=== PATIENT | male | born 1990 | race Caucasian/White ===

== ENCOUNTER 2022-07-09 10:52 | Inpatient (IN) | payer SELFPAY ==
[2022-07-09] VITALS (9 sets, daily range): BP systolic 109–164; BP diastolic 48–93; PULSE 81–118; RESP 16–21; TEMP 36.6–36.9; O2SAT 98–99; BMI 23.6; BMI 24.3
--- NOTE | 2022-07-09 13:25 | EX.ED.SAOD ---
HPI History of Present Illness Chief Complaint: Substance Abuse Informant: patient and parent Narrative Narrative: Patient presents with his father for alcohol detox. He has been drinking for quite some time. He states he will drink vodka, tequila, or gin. His last drink was around 4 PM yesterday afternoon. He reportedly was at [facility] this morning with an alcohol withdrawal seizure. I was handed discharge paperwork from the hospital advising him to follow-up with 180. Father states that he has been weak and has numbness and tingling in his feet. PFSH PFSH Medical History Alcohol abuse Anxiety and depression Chronic right hip pain (Unknown) Methamphetamine abuse Tobacco use Home Medications NK 07/09/22 [History Last Taken Unknown] Allergy/AdvReac Type Severity Reaction Status Date / Time No Known Allergies Allergy Verified 07/09/22 10:56 Family History (Updated 07/09/22 @ 13:[address] Aisha Padgett MD) Father Anxiety and depression Mother No problems noted. Family History other Surgical History (Updated 07/09/22 @ 13:[address] Aisha Padgett MD) No history of previous surgery Social History (Updated 07/09/22 @ 14:[address] Aisha Padgett MD) household members: other details: Lives with his father. Smoking Status: Current every day smoker tobacco type: cigarettes Smoking packs per day: 1 Smoking cigarettes per day: 20.0 Years smoked: 18 Smoking pack-years: 18.00 alcohol intake: current alcohol intake frequency: 3 or more drinks per day details: 750 ml bottle vodka current daily. substance use type: methamphetamine ROS ROS ED Constitutional Constitutional ED: Denies chills or fever(s) Eyes Eyes: Denies change in vision or discharge from eye(s) ENT ENT ED: Denies discharge from eye(s), rhinorrhea or sore throat Cardiovascular Cardiovascular: Denies chest pain or palpitations Respiratory/Chest Respiratory/Chest: Denies cough or dyspnea Gastrointestinal Gastrointestinal: Denies abdominal pain, diarrhea, nausea or vomiting Genitourinary Genitourinary ED: Denies dysuria Musculoskeletal Musculoskeletal: Denies back pain or extremity pain Integumentary Denies Abrasions or rash Neurologic Neurologic: Reports paresthesias and weakness; Denies headache(s) Psychiatric Psychiatric: Denies anxiety or depression Endocrine Endocrinology: Denies polydipsia or polyuria Allergic/Immunologic Allergic/Immunologic ED: Denies lip swelling or urticaria EXAM Physical Exam Const Vital Signs: 07/09/22 10:53 07/09/22 13:53 07/09/22 13:53 Temperature 97.9 F Temperature Source Temporal Pulse Rate 113 H 98 98 Respiratory Rate 16 18 18 Blood Pressure 123/79 H 114/76 Blood Pressure Mean 93 88 Pulse Ox 99 99 99 Oxygen Delivery Method Room Air Room Air Room Air 07/09/22 13:53 07/09/22 14:38 Temperature 97.9 F Temperature Source Temporal Pulse Rate 98 81 Respiratory Rate 18 16 Blood Pressure 114/76 120/79 Blood Pressure Mean 88 92 Pulse Ox 99 98 Oxygen Delivery Method Room Air Room Air Positive well nourished and well developed General Appearance ED: well developed HEENT Reports dry mucous membranes Mouth ED: Yes dry mucous membranes Mouth: dry mucous membranes Neck no lymphadenopathy Chest Wall inspection of chest normal and palpation of chest normal Resp normal respiratory effort and clear to auscultation bilaterally Cardio Rate: tachycardic GI soft to palpation Neuro oriented x3 Sensorium / Orientation: alert Skin General Skin Exam: jaundice MDM MDM MDM Narrative Medical decision making narrative: Lab work for ED addiction medicine is obtained. Patient given a small dose of Ativan. Lab Data Attestation: I reviewed the patient's lab results. Labs: Laboratory Results - last 24 hr 07/09/22 07/09/22 07/09/22 13:44 13:44 13:44 WBC 4.0 L RBC 3.22 L Hgb 9.8 L Hct 30.8 L MCV 95.7 H MCH 30.4 MCHC 31.8 L RDW Std Deviation 53.1 H RDW Coeff of Mono 15.4 H Plt Count 81 L MPV 11.4 Immature Gran % (Auto) 0.500 Neut % (Auto) 45.0 L Lymph % (Auto) 35.9 [place] % (Auto) 16.3 H Eos % (Auto) 1.3 Baso % (Auto) 1.0 Absolute Neuts (auto) 1.8 L Absolute Lymphs (auto) 1.43 Nucleated RBC % 0 Differential Comment SCANNED Platelet Estimate MOD DEC Sodium 138 Potassium 2.6 L* Chloride 100 Carbon Dioxide 23.0 Anion Gap 15 BUN 5 L Creatinine 0.49 L Estim Creat Clear Calc 212.42 Est GFR (MDRD) Af Amer 251 Est GFR (MDRD) Non-Af 208 BUN/Creatinine Ratio 10.2 Glucose 78 Calcium 8.1 L Phosphorus Magnesium 1.2 L Total Bilirubin 2.20 H AST 103 H ALT 48 Alkaline Phosphatase 87 Total Protein 6.4 Albumin 2.7 L Globulin 3.7 Albumin/Globulin Ratio 0.7 L Ethyl Alcohol < 3.0 07/09/22 13:44 WBC RBC Hgb Hct MCV MCH MCHC RDW Std Deviation RDW Coeff of Mono Plt Count MPV Immature Gran % (Auto) Neut % (Auto) Lymph % (Auto) [place] % (Auto) Eos % (Auto) Baso % (Auto) Absolute Neuts (auto) Absolute Lymphs (auto) Nucleated RBC % Differential Comment Platelet Estimate Sodium Potassium Chloride Carbon Dioxide Anion Gap BUN Creatinine Estim Creat Clear Calc Est GFR (MDRD) Af Amer Est GFR (MDRD) Non-Af BUN/Creatinine Ratio Glucose Calcium Phosphorus 1.9 L Magnesium Total Bilirubin AST ALT Alkaline Phosphatase Total Protein Albumin Globulin Albumin/Globulin Ratio Ethyl Alcohol Treatment and Re-Evaluation Narrative: CBC was white count low at 4.0 with a hemoglobin 9.8. Platelet count is 81,000. Chemistry studies significant for potassium of 2.6. LFTs reveal total bili of 2.2 and an AST of 103. EtOH is less than 3. I spoke with the hospital shortly after seeing the patient. Once potassium level returns low he is ordered 40 mill equivalents of IV potassium. I have requested records from [facility] as the patient reportedly was there this morning. Nurse states she was told on the phone that the patient's potassium was 2.5 at that time and they gave him 50 mill equivalents of potassium by mouth. Patient admitted to the floor for detox. Discharge Plan Triage Chief Complaint: Substance Abuse ED Provider: Cayla Edwards Dx/Rx/DC Orders Clinical Impression: ETOH abuse, Desire for detoxification, Hypokalemia Prescriptions: No Action NK Primary Care Provider: Care Physician,No Primary Referrals: NOT,DEFINED [Non-Staff] - Disposition Disposition: Acute Care [facility]
[2022-07-09] MEDS: 0.9% Normal Saline 1,000 ML 150 ML IV (13:41)
[2022-07-09] MEDS: LORazepam 2 MG/ML Syringe 0.5 MG IV (13:41)
[2022-07-09 13:52] LABS: Absolute Lymphocyte Count 1.43 X10^3/uL (0.83-4.51); Absolute Neutrophil Count 1.8 X10^3/uL (2.0-7.7); Basophil# 0.04 X10^3/uL; Eosinophil# 0.05 X10^3/uL; Eosinophils% 1.3 % (0-5); Hematocrit 30.8 % (40-54); Hemoglobin 9.8 g/dL (13.0-16.5); Lymphocyte # 1.43 X10^3/ul (0.83-4.51); Lymphocyte % 35.9 % (19-41); Mean Corp Hgb Conc 31.8 g/dL (32-36); Mean Corpuscular Hgb 30.4 pg (27.0-32.0); Mean Corpuscular Volume 95.7 fL (80-94); Mean Platelet Vol. 11.4 fl (6.2-12.0); Monocyte# 0.65 X10^3/uL; Monocyte% 16.3 % (0-10); NRBC Flagged by Analyzer 0 % (0-5); Neutrophil # 1.79 X10^3/uL (2.7-7.7); POSITIVE COUNT YES; Platelet Count 81 K/mm3 (150-450); RBC Distribution Width CV 15.4 % (11.6-14.6); RBC Distribution Width SD 53.1 fl (35.1-43.9); Red Blood Count 3.22 M/mm3 (4.6-6.2)
[2022-07-09 14:02] LABS: Differential Indicated SCAN CRITERIA MET
[2022-07-09 14:08] LABS: Phosphorus 1.9 mg/dL (2.5-4.9)
[2022-07-09 14:13] LABS: ALB/GLOB Ratio 0.7 RATIO (0.9-2.4); AST(SGOT) 103 U/L (15-37); Alanine Aminotransfer ALT/SGPT 48 U/L (16-61); Albumin, Serum 2.7 g/dL (3.2-5.0); Alkaline Phosphatase 87 U/L (45-117); Anion Gap 15 (5-15); BUN 5 mg/dL (7-18); BUN/Creat Ratio 10.2 RATIO (10-20); Calcium,Total 8.1 mg/dL (8.5-10.1); Chloride 100 mmol/L (98-107); Creatinine, Serum 0.49 mg/dL (0.70-1.30); EST Glomerular Filtration Rate 208 mL/min (>60); Est Glom Filt Rate - Afr Amer 251 mL/min (>60); Estimated Creatinine Clearance 212.42 ml/min; Globulin 3.7 g/dL (2.2-4.2); Glucose 78 mg/dL (74-106); Magnesium 1.2 mg/dL (1.6-2.6); Potassium 2.6 mmol/L (3.5-5.1); Protein, Total 6.4 g/dL (6.4-8.2); Sodium Level 138 mmol/L (136-145)
[2022-07-09 14:14] LABS: Alcohol, Blood (Medical)-Serum < 3.0 mg/dL
--- NOTE | 2022-07-09 14:19 | PCM.HP.STD ---
HPI - General General Date of Admission: 07/09/22 Date of Service: 07/09/22 Chief Complaint: EtOH withdrawal, recent EtOH withdrawal seizure. HPI Narrative The patient is a 32 y/o M w/ PMHx: Chronic R Hip pain s/p remote injury, EtOH Abuse, Tobacco use, Anxiety and Depression, Methamphetamine abuse who presents to the [facility] on 07/09/22 w/ noted acute EtOH withdrawal, onset starting on the day prior to presentation, worsening, following last EtOH intake 07/08/22 4 pm with onset of nausea, tremors, agitation, tactile disturbances initially, eventually presenting to [facility] where is was kept in the ED overnight and treated for an apparent EtOH withdrawal seizure confirmed per patient father presentation currently and eventually discharged to home with recommendation for follow-up with 180. Discharge paperwork from their facility reviewed and it does list EtOH withdrawal seizure. No medication was given to the patient at his discharge. The father called 180 and was immediately referred to present with his son to the [facility] ED for evaluation and treatment. Patient interested in attaining sober status noting that he started heavy EtOH drinking ~ 4 years prior when his grandfather passed and then he could not stop. He notes normally he drinks recently at least 750 ml bottle vodka daily. Work-up in the ED included T97.9, heart rate 113, BP 123/79, respiratory rate 16, 99% on room air, pending alcohol level, UDS, urinalysis, CBC and CMP upon evaluation of patient. In the ED patient ministered Ativan 0.5 mg IV x1. [facility] Medical History Alcohol abuse Anxiety and depression Chronic right hip pain (Unknown) Methamphetamine abuse Tobacco use Allergy/AdvReac Type Severity Reaction Status Date / Time No Known Allergies Allergy Verified 07/09/22 10:56 Family History (Updated 07/09/22 @ 13:[address] Aisha Padgett MD) Father Anxiety and depression Mother No problems noted. Family History other other (Patient does not know his mother well. His father has been from her x 18 years and there is not marked interaction.) Surgical History (Updated 07/09/22 @ 13:[address] Aisha Padgett MD) No history of previous surgery Social History (Updated 07/09/22 @ 14:[address] Aisha Padgett MD) household members: other details: Lives with his father. Smoking Status: Current every day smoker tobacco type: cigarettes Smoking packs per day: 1 Smoking cigarettes per day: 20.0 Years smoked: 18 Smoking pack-years: 18.00 alcohol intake: current alcohol intake frequency: 3 or more drinks per day details: 750 ml bottle vodka current daily. substance use type: methamphetamine ROS ROS Narrative Admission Review of Systems: CONSTITUTIONAL: No weight loss, fever, chills, + weakness or fatigue. HEENT: Eyes: No visual loss, blurred vision, double vision or yellow sclerae. Ears, Nose, Throat: No hearing loss, sneezing, congestion, runny nose or sore throat. SKIN: No rash or itching, lesions, wounds. CARDIOVASCULAR: No chest pain, chest pressure or chest discomfort, palpitations, edema, orthopnea, syncopal events. RESPIRATORY: No shortness of breath, cough or sputum, wheezing, hemoptysis. GASTROINTESTINAL: + anorexia, nausea, No vomiting or diarrhea, abdominal pain, melena, BRBPR. GENITOURINARY: No dysuria, frequency, urgency or retention. NEUROLOGICAL: + Seizure, tactile disturbances, tremors, No headache, dizziness, syncope, paralysis, ataxia, numbness or tingling in the extremities, focal weakness, change in bowel or bladder control. MUSCULOSKELETAL: + muscle, back pain, joint pain or stiffness. HEMATOLOGIC: No anemia, bleeding or bruising. LYMPHATICS: No enlarged nodes. No history of splenectomy. PSYCHIATRIC: + history of depression or anxiety. ENDOCRINOLOGIC: No reports of sweating, cold or heat intolerance. No polyuria or polydipsia. ALLERGIES: No history of asthma, hives, eczema or rhinitis. Vital Signs Vital Signs Vital Signs: 07/09/22 10:53 Temperature 97.9 F Temperature Source Temporal Pulse Rate 113 H Respiratory Rate 16 Blood Pressure 123/79 H Blood Pressure Mean 93 Pulse Ox 99 Oxygen Delivery Method Room Air Weight Weight: 160 lb Body Mass Index (BMI) 23.6 Physical Exam Narrative Physical Examination: General: Awake, alert, oriented x 3 and cooperative, lying in the bed, fatigued, restless, mild tremor still present, recently ministered IV Ativan per ED. Skin: Normal color, normal turgor, no icterus, no cyanosis except occasional staged ecchymoses. HEENT: AT/NC, EOMI, PERRLA, dry MM, no carotid bruits or JVD noted. Lungs: Mildly diminished, greater bases, appropriate effort, no rales, ronchi or wheezing. Heart: Mildly tachycardic with regular rhythm; no gallop, rub audible. Abdomen: Soft, mild HTN, NTTP, ND, mildly hyperactive BS, no HSM. Extremities: No cyanosis, clubbing, or edema. Neurological: Patient awake, alert, oriented as noted, fatigued, restless, cognitive function suspect mildly decreased from baseline intact; pupils equally reactive to light and accommodation, cranial nerves grossly normal, moving all 4 extremities, no focal deficits, strength moderately to severely globally decrease secondary to recent alcohol withdrawal seizure but improving, occurred earlier in the day, mildly tremulous, still some tactile disturbances. Psychiatric: Affect appears fatigued, evident mild withdrawal ongoing no acute evidence of depressive or anxiety feelings but does admit underlying history. Results Lab / Micro Data Result Diagrams: 07/09/22 13:44 07/09/22 13:44 Assessment & Plan Assessment/Plan (1) Acute hyperactive alcohol withdrawal delirium: (2) Alcohol withdrawal seizure: PLAN: Plan The patient is a 32 y/o M w/ PMHx: Chronic R Hip pain s/p remote injury, EtOH Abuse, Tobacco use, Anxiety and Depression, Methamphetamine abuse who presents to the [facility] on 07/09/22 w/ noted acute EtOH withdrawal, onset starting on the day prior to presentation, worsening, following last EtOH intake 07/08/22 4 pm with onset of nausea, tremors, agitation, tactile disturbances initially, eventually presenting to [facility] where is was kept in the ED overnight and treated for an apparent EtOH withdrawal seizure confirmed per patient father presentation currently and eventually discharged to home with recommendation for follow-up with 180. #1. Acute EtOH Withdrawal w/ associated recent Acute EtOH Withdrawal Seizure prior to ED arrival: Will admit to [facility], routine labs obtained in the ED upon presentation and pending upon evaluation. Given interest in sobriety, will initiate and continue on protocol with taper course of Phenobarbital, scheduled gabapentin for seizure prophylaxis given recent EtOH seizure associated, as needed Catapres, Bentyl, Vistaril, IV fluids, IV antiemetics, Tylenol as needed for pain. Will consult Case management for assistance for transition to next level of rehabilitation care. Mag, phos pending. Maintain on CIWA protocol concurrently. #2. Polysubstance abuse with reported methamphetamine use: Unclear if other additional use, not extremely forthcoming, UDS is pending but reported methamphetamine from prior. #3. Anxiety and depression: Likely greatly contributing to his alcohol abuse, reports onset of heavy drinking for years prior following the passing of his grandfather, will have 180 and case management consulted and would benefit greatly from therapy and potentially medications once he is transitioned out of the acute withdrawal treatment phase #4. Tobacco Abuse: Encouraged cessation, inpatient consultation per RT, NR if desired. #5. Chronic right hip pain, suspected osteoarthritic change: Patient with chronic right hip pain following injury in 6 grade reportedly falling off horse, encourage frequent positional changes, fall precautions #6. DVT prophylaxis: Low risk, encourage ambulation once appropriate. Admission Evaluation Time spent evaluating chart, patient history, patient evaluation, care planning and discussion with specialists: 75 minutes. Charges/Coding Visit Charges Inpatient E&M: 61071 Init Hosp L3
[2022-07-09 14:24] LABS: Differential Comment SCANNED; Platelet Estimate MOD DEC (ADEQ)
[2022-07-09 15:13] LABS: Mucous, Urine 0 SEEN /hpf (<or=2+); Red Blood Cells-Urine 0 SEEN /hpf (0-5)
[2022-07-09 15:17] LABS: Glucose, Dipstick Normal (Normal); Leukocyte Esterase-Dipstick 25 /ul (Negative); Nitrite-Dipstick Negative (Negative); Occult Blood-Urine Negative /ul (Negative); Protein-Dipstick 15 mg/dl (Negative); Urine Urobilinogen 8 mg/dl (Normal); Urine pH 6.5 (5.0 - 8.0)
[2022-07-09 15:20] LABS: Color, Urine Yellow (Yellow); Urine Bilirubin Dipstick 1 mg/dL (Negative); Urine Clarity Sl Cldy (Clear)
[2022-07-09 15:22] LABS: Ketone-Dipstick 150 mg/dl (Negative)
[2022-07-09] MEDS: Potassium Chloride 10mEq/100mL 10 MEQ/100 ML IV.SOLN. 100 MEQ IV BOLUS ×4 (15:25→19:47)
[2022-07-09 15:26] LABS: Bacteria 1+ /hpf (None Seen); Squamous Epithelial Cells - UA 0-5 SEEN /hpf (0-5); White Blood Cells 0-5 SEEN /hpf (0-5)
[2022-07-09 15:42] LABS: Amphetamine Urine VISTA POSITIVE (<1000 ng/mL); Barbiturate Urine VISTA NEGATIVE (< 200 ng/mL); Benzodiazepine Urine VISTA NEGATIVE (< 200 ng/mL); Cocaine Urine VISTA NEGATIVE (< 300 ng/mL); Ecstacy Urine VISTA NEGATIVE (< 500 ng/mL); Methadone Urine VISTA NEGATIVE (< 300 ng/mL); PCP Urine VISTA NEGATIVE (< 25 ng/mL); THC Urine VISTA NEGATIVE (< 50 ng/mL); Vista UDS pH Range 6
[2022-07-09] MEDS: Phenobarbital Sodium 130 MG/ML Vial 100 MG IV (16:55)
[2022-07-09] MEDS: Magnesium Sulfate 4gm/100mL 4 GM/100 ML IV.SOLN. IV (16:59)
[2022-07-09] MEDS: Lactated Ringers 1,000 ML 125 ML IV (17:02)
[2022-07-09] MEDS: Phenobarbital 32.4 MG Tablet PO (21:12)
[2022-07-09] MEDS: Gabapentin 300 MG Capsule PO (21:12)
[2022-07-09] MEDS: Pantoprazole Sodium 40 MG Tablet PO (21:13)
[2022-07-10] VITALS (10 sets, daily range): BP systolic 120–142; BP diastolic 62–98; PULSE 73–114; RESP 16–18; TEMP 36.7–37; O2SAT 94–100
[2022-07-10] MEDS: Phenobarbital 32.4 MG Tablet PO ×6 (01:44→21:01)
[2022-07-10 04:53] LABS: Absolute Neutrophil Count 1.3 X10^3/uL (2.0-7.7); Basophil# 0.04 X10^3/uL; Basophil% 1.1 % (0-1); Eosinophil# 0.08 X10^3/uL; Eosinophils% 2.2 % (0-5); Hemoglobin 9.1 g/dL (13.0-16.5); Lymphocyte % 45.9 % (19-41); Mean Corp Hgb Conc 32.5 g/dL (32-36); Mean Corpuscular Hgb 31.1 pg (27.0-32.0); Mean Corpuscular Volume 95.6 fL (80-94); Mean Platelet Vol. 10.5 fl (6.2-12.0); Monocyte# 0.54 X10^3/uL; Monocyte% 14.6 % (0-10); NRBC Flagged by Analyzer 0 % (0-5); Neutrophil # 1.33 X10^3/uL (2.7-7.7); Neutrophil % 35.9 % (47-70); POSITIVE COUNT YES; Platelet Count 89 K/mm3 (150-450); RBC Distribution Width CV 15.6 % (11.6-14.6); Red Blood Count 2.93 M/mm3 (4.6-6.2); White Blood Count 3.7 K/mm3 (4.4-11.0)
[2022-07-10 05:14] LABS: Vitamin B12 590 pg/mL (211-911)
[2022-07-10 05:42] LABS: ALB/GLOB Ratio 0.7 RATIO (0.9-2.4); AST(SGOT) 82 U/L (15-37); Alanine Aminotransfer ALT/SGPT 43 U/L (16-61); Albumin, Serum 2.5 g/dL (3.2-5.0); Alkaline Phosphatase 76 U/L (45-117); Anion Gap 15 (5-15); BUN 2 mg/dL (7-18); Calcium,Total 7.7 mg/dL (8.5-10.1); Chloride 100 mmol/L (98-107); Creatinine, Serum 0.34 mg/dL (0.70-1.30); EST Glomerular Filtration Rate 320 mL/min (>60); Est Glom Filt Rate - Afr Amer 388 mL/min (>60); Estimated Creatinine Clearance 306.14 ml/min; Ferritin 387 ng/mL (26-388); Globulin 3.6 g/dL (2.2-4.2); Glucose 102 mg/dL (74-106); Iron 51 ug/dL (65-175); Iron Binding Capacity,Total 240 ug/dL (250-450); Magnesium 1.5 mg/dL (1.6-2.6); PERCENT IRON SATURATION 21.2 % (15.0-55.0); Phosphorus 2.1 mg/dL (2.5-4.9); Potassium 2.5 mmol/L (3.5-5.1); Protein, Total 6.1 g/dL (6.4-8.2); Sodium Level 138 mmol/L (136-145)
[2022-07-10] MEDS: Gabapentin 300 MG Capsule PO ×3 (05:52→21:01)
[2022-07-10] MEDS: Magnesium Sulfate 4gm/100mL 4 GM/100 ML IV.SOLN. IV (06:42)
--- NOTE | 2022-07-10 08:05 | PN.HOSP_ITS ---
Subjective Subjective Patient is a 32-year-old gentleman with history of polysubstance dependence including methamphetamine as well as alcohol admitted with acute alcohol withdrawal Objective Data Objective Data Vital Signs: Vital Signs Temp Pulse Resp BP Pulse Ox O2 Del Method 98.2 F 82 16 142/98 H 99 Room Air 07/10/22 03:20 07/10/22 04:11 07/10/22 03:20 07/10/22 03:20 07/10/22 03:20 07/10/22 03:20 Oxygen Delivery Method Room Air Weight: 74.9 kg Body Mass Index (BMI) 24.3 Intake & Output: Intake and Output for Last 24 Hours 07/08/22 07/09/22 07/10/22 23:59 23:59 23:59 Intake Total 1500 / 1500 1957 / 1957 Output Total 625 / 625 700 / 700 Balance 875 / 875 1257 / 1257 Lab / Micro Data Result Diagrams: 07/10/22 04:20 07/10/22 04:20 Labs: Laboratory Results - last 24 hr 07/09/22 13:44: WBC 4.0 L, RBC 3.22 L, Hgb 9.8 L, Hct 30.8 L, MCV 95.7 H, MCH 30.4, MCHC 31.8 L, RDW Std Deviation 53.1 H, RDW Coeff of Mono 15.4 H, Plt Count 81 L, MPV 11.4, Immature Gran % (Auto) 0.500, Neut % (Auto) 45.0 L, Lymph % (Auto) 35.9, [place] % (Auto) 16.3 H, Eos % (Auto) 1.3, Baso % (Auto) 1.0, Absolute Neuts (auto) 1.8 L, Absolute Lymphs (auto) 1.43, Nucleated RBC % 0, Differential Comment SCANNED, Platelet Estimate MOD DEC 07/09/22 13:44: Sodium 138, Potassium 2.6 L*, Chloride 100, Carbon Dioxide 23.0, Anion Gap 15, BUN 5 L, Creatinine 0.49 L, Estim Creat Clear Calc 212.42, Est GFR (MDRD) Af Amer 251, Est GFR (MDRD) Non-Af 208, BUN/Creatinine Ratio 10.2, Glucose 78, Calcium 8.1 L, Magnesium 1.2 L, Total Bilirubin 2.20 H, AST 103 H, ALT 48, Alkaline Phosphatase 87, Total Protein 6.4, Albumin 2.7 L, Globulin 3.7, Albumin/Globulin Ratio 0.7 L 07/09/22 13:44: Ethyl Alcohol < 3.0 07/09/22 13:44: Phosphorus 1.9 L 07/09/22 15:00: Urine Opiates Screen NEGATIVE, Urine Methadone Screen NEGATIVE, Ur Barbiturates Screen NEGATIVE, Ur Phencyclidine Scrn NEGATIVE, Ur Amphetamines Screen POSITIVE H, MDMA (Ecstasy) Screen NEGATIVE, U Benzodiazepines Scrn NEGATIVE, Urine Cocaine Screen NEGATIVE, U Cannabinoids Screen NEGATIVE, Ur Drug Screen Comment 07/09/22 15:00: Urine Color Yellow, Urine Clarity Sl Cldy, Urine pH 6.5, Ur Specific [place] 1.010, Urine Protein 15 H, Urine Glucose (UA) Normal, Urine Ketones 150 A*, Urine Occult Blood Negative, Urine Nitrite Negative, Urine Bilirubin 1 H, Urine Urobilinogen 8 H, Ur Leukocyte Esterase 25 H, Urine RBC 0 SEEN, Urine WBC 0-5 SEEN, Ur Squamous Epith Cells 0-5 SEEN, Urine Bacteria 1+, Urine Mucus 0 SEEN 07/10/22 04:20: WBC 3.7 L, RBC 2.93 L, Hgb 9.1 L, Hct 28.0 L, MCV 95.6 H, MCH 31.1, MCHC 32.5, RDW Std Deviation 54.0 H, RDW Coeff of Mono 15.6 H, Plt Count 89 L, MPV 10.5, Immature Gran % (Auto) 0.300, Neut % (Auto) 35.9 L, Lymph % (Auto) 45.9 H, [place] % (Auto) 14.6 H, Eos % (Auto) 2.2, Baso % (Auto) 1.1 H, Absolute Neuts (auto) 1.3 L, Absolute Lymphs (auto) 1.70, Nucleated RBC % 0 07/10/22 04:20: Sodium 138, Potassium 2.5 L*, Chloride 100, Carbon Dioxide 23.0, Anion Gap 15, BUN 2 L, Creatinine 0.34 L, Estim Creat Clear Calc 306.14, Est GFR (MDRD) Af Amer 388, Est GFR (MDRD) Non-Af 320, BUN/Creatinine Ratio 6.0 L, Glucose 102, Calcium 7.7 L, Phosphorus 2.1 L, Magnesium 1.5 L, Iron 51 L, TIBC 240 L, Iron Saturation 21.2, Ferritin 387, Total Bilirubin 1.40 H, AST 82 H, ALT 43, Alkaline Phosphatase 76, Total Protein 6.1 L, Albumin 2.5 L, Globulin 3.6, Albumin/Globulin Ratio 0.7 L, Folate 7.60 07/10/22 04:20: Vitamin B12 590 Physical Exam Narrative GENERAL: Was agitated agitated HEENT: Atraumatic; normocephalic EYES; Anicteric, Normal Conjunctiva NECK; supple, normal thyroid, RESPIRATORY: Diminished to auscultation CARDIOVASCULAR: Regular S1 S2, GI: soft, normoactive bowel sounds, : No Renal angle tenderness; EXTREMITIES: No edema, no clubbing, MUSCULOSKELETAL: no muscle wasting NEURO: Awake; no lateralizing signs. SKIN: No Rash PSYCH; agitated Assessment & Plan Assessment/Plan (1) Acute hyperactive alcohol withdrawal delirium: (2) Alcohol withdrawal seizure: PLAN: Plan Patient is a 32-year-old gentleman with history of polysubstance dependence including methamphetamine as well as alcohol admitted with acute alcohol withdrawal 1. Acute alcohol withdrawal -patient has been admitted to regular nursing floor being managed with phenobarb taper in addition to adjuvant medications for symptom management 2. Severe hypokalemia ? Possibly related to his alcohol use corrected per protocol repeat potassium levels ordered 3. Polysubstance dependence ? Including alcohol as well as methamphetamine counseled on cessation 4. Tobacco dependence - Counseled on cessation, offered nicotine patch for tobacco cravings 5. Anemia - Secondary to chronic disorder monitoring H&H and transfuse if patient becomes symptomatic or hemoglobin falls below 7 6DVT prophylaxis ? Low risk did encourage any ambulation Time spent in the patient's overall evaluation,decision-making process, review of diagnostic data, adjustment of management, discussion with other providers, nursing nursing and ancillary staff involved in patient's care documentation, 56 minutes Charges/Coding Visit Charges Inpatient E&M: 86626 Subs Hosp L3 Reason for Visit Reason for Visit: Diagnoses Alcohol use, unspecified with withdrawal delirium (07/09/22) Alcohol use, unspecified with withdrawal, unspecified (07/09/22) Unspecified convulsions (07/09/22)
[2022-07-10] MEDS: Pantoprazole Sodium 40 MG Tablet PO ×2 (08:52→21:03)
[2022-07-10] MEDS: Folic Acid 1 MG Tablet PO (08:52)
[2022-07-10] MEDS: Thiamine Hydrochloride 100 MG Tablet PO (08:52)
[2022-07-10] MEDS: LORazepam 1 MG Tablet 2 MG PO ×4 (08:55→21:03)
[2022-07-10] MEDS: Potassium Chloride 10mEq/100mL 10 MEQ/100 ML IV.SOLN. 100 MEQ IV BOLUS ×4 (09:22→12:52)
--- NOTE | 2022-07-10 09:32 | NURSING ---
pt agitated upset that he is here. confused on place and time and upset that iv fluids are running. ativan given. pt grabbed nursing arm and would not let go, but did finally
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
[2022-07-10 13:58] LABS: Anion Gap 13 (5-15); BUN 1 mg/dL (7-18); BUN/Creat Ratio 2.6 RATIO (10-20); Chloride 100 mmol/L (98-107); Creatinine, Serum 0.39 mg/dL (0.70-1.30); EST Glomerular Filtration Rate 270 mL/min (>60); Est Glom Filt Rate - Afr Amer 327 mL/min (>60); Estimated Creatinine Clearance 266.89 ml/min; Glucose 106 mg/dL (74-106); Phosphorus 3.2 mg/dL (2.5-4.9); Potassium 2.8 mmol/L (3.5-5.1); Sodium Level 139 mmol/L (136-145)
[2022-07-10] MEDS: Potassium Chloride Oral Tablet 20 MEQ PO (16:31)
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
[2022-07-10] MEDS: 0.9% Saline Lock 10 ML Syringe IV (21:03)
[2022-07-11 01:45] VITALS: BP 139/87; PULSE 74; RESP 18; TEMP 36.8; O2SAT 99
[2022-07-11] MEDS: LORazepam 1 MG Tablet 2 MG PO ×4 (01:49→14:54)
[2022-07-11] MEDS: Phenobarbital 32.4 MG Tablet PO ×6 (01:49→21:22)
[2022-07-11 06:31] VITALS: BP 121/89; PULSE 74; RESP 18; TEMP 36.8; O2SAT 100
[2022-07-11] MEDS: Gabapentin 300 MG Capsule PO ×3 (06:37→21:22)
[2022-07-11 06:38] LABS: Anion Gap 9 (5-15); BUN 4 mg/dL (7-18); BUN/Creat Ratio 11.4 RATIO (10-20); Calcium,Total 8.4 mg/dL (8.5-10.1); Chloride 104 mmol/L (98-107); Creatinine, Serum 0.35 mg/dL (0.70-1.30); EST Glomerular Filtration Rate 305 mL/min (>60); Est Glom Filt Rate - Afr Amer 368 mL/min (>60); Estimated Creatinine Clearance 297.39 ml/min; Glucose 109 mg/dL (74-106); Phosphorus 3.4 mg/dL (2.5-4.9); Potassium 2.9 mmol/L (3.5-5.1); Sodium Level 141 mmol/L (136-145)
--- NOTE | 2022-07-11 07:34 | PN.HOSP_ITS ---
Reason for Visit Reason for Visit: Diagnoses Alcohol use, unspecified with withdrawal delirium (07/09/22) Alcohol use, unspecified with withdrawal, unspecified (07/09/22) Unspecified convulsions (07/09/22) Subjective Subjective Seen remains significantly tremulous. Patient sweats a lot. Objective Data Objective Data Vital Signs: Vital Signs Temp Pulse Resp BP Pulse Ox O2 Del Method 98.2 F 74 18 121/89 H 100 Room Air 07/11/22 06:31 07/11/22 06:31 07/11/22 06:31 07/11/22 06:31 07/11/22 06:31 07/11/22 06:31 Oxygen Delivery Method Room Air Weight: 74.9 kg Body Mass Index (BMI) 24.3 Intake & Output: Intake and Output for Last 24 Hours 07/09/22 07/10/22 07/11/22 23:59 23:59 23:59 Intake Total 1500 / 1500 4120.3333 / 4120.3333 Output Total 625 / 625 3200 / 3200 Balance 875 / 890 477.5298 / 920.3333 Lab / Micro Data Result Diagrams: 07/10/22 04:20 07/11/22 05:01 Labs: Laboratory Results - last 24 hr 07/10/22 11:49: Sodium 139, Potassium 2.8 L, Chloride 100, Carbon Dioxide 26.0, Anion Gap 13, BUN 1 L, Creatinine 0.39 L, Estim Creat Clear Calc 266.89, Est GFR (MDRD) Af Amer 327, Est GFR (MDRD) Non-Af 270, BUN/Creatinine Ratio 2.6 L, Gluco se 106, Calcium 8.0 L, Phosphorus 3.2 07/11/22 05:01: Sodium 141, Potassium 2.9 L, Chloride 104, Carbon Dioxide 28.0, Anion Gap 9, BUN 4 L, Creatinine 0.35 L, Estim Creat Clear Calc 297.39, Est GFR (MDRD) Af Amer 368, Est GFR (MDRD) Non-Af 305, BUN/Creatinine Ratio 11.4, G lucose 109 H, Calcium 8.4 L, Phosphorus 3.4 Physical Exam Narrative GENERAL: Was agitated agitated HEENT: Atraumatic; normocephalic EYES; Anicteric, Normal Conjunctiva NECK; supple, normal thyroid, RESPIRATORY: Diminished to auscultation CARDIOVASCULAR: Regular S1 S2, GI: soft, normoactive bowel sounds, : No Renal angle tenderness; EXTREMITIES: No edema, no clubbing, MUSCULOSKELETAL: no muscle wasting NEURO: Awake; no lateralizing signs. SKIN: No Rash PSYCH; agitated Assessment & Plan Assessment/Plan (1) Acute hyperactive alcohol withdrawal delirium: (2) Alcohol withdrawal seizure: PLAN: Plan Patient is a 32-year-old gentleman with history of polysubstance dependence including methamphetamine as well as alcohol admitted with acute alcohol withdrawal 1. Acute alcohol withdrawal -patient has been admitted to regular nursing floor being managed with phenobarb taper in addition to adjuvant medications for symptom management ? 07/11/2022 patient remains significantly tremulous plan is to continue with current treatment regimen 2. Severe hypokalemia ? Possibly related to his alcohol use corrected per protocol repeat potassium levels ordered 3. Polysubstance dependence ? Including alcohol as well as methamphetamine counseled on cessation 4. Tobacco dependence - Counseled on cessation, offered nicotine patch for tobacco cravings 5. Anemia - Secondary to chronic disorder monitoring H&H and transfuse if patient becomes symptomatic or hemoglobin falls below 7 6. DVT prophylaxis ? Low risk did encourage any ambulation Time spent in the patient's overall evaluation,decision-making process, review of diagnostic data, adjustment of management, discussion with other providers, nursing nursing and ancillary staff involved in patient's care documentation, 36 minutes Charges/Coding Visit Charges Inpatient E&M: 38712 Subs Hosp L2
[2022-07-11] MEDS: Folic Acid 1 MG Tablet PO (08:54)
[2022-07-11] MEDS: Pantoprazole Sodium 40 MG Tablet PO ×2 (08:54→21:24)
[2022-07-11] MEDS: Thiamine Hydrochloride 100 MG Tablet PO (08:54)
[2022-07-11] MEDS: Potassium Chloride Oral Tablet 20 MEQ PO ×2 (08:54→17:55)
[2022-07-11] MEDS: Potassium Chloride Oral Tablet 20 MEQ 40 MEQ PO (08:54)
[2022-07-11 11:00] VITALS: BP 127/76; PULSE 71; RESP 16; TEMP 37.3; O2SAT 98
--- NOTE | 2022-07-11 12:10 | CASEMGMT ---
DANNY Note DANNY was advised by [facility] SW that patient has no insurance. DANNY met with patient nick and provided him with Medicaid application. DANNY encouraged patient to complete the medicaid application when he is feeling better. No other issues or needs voiced. DANNY remains available if needs arise. Reta TOMLINSON
[2022-07-11 14:50] VITALS: BP 128/83; PULSE 104; RESP 16; TEMP 36.9; O2SAT 96
[2022-07-11] MEDS: LORazepam 2 MG/ML Syringe IV ×3 (15:23→19:32)
[2022-07-11] MEDS: 0.9% Saline Lock 10 ML Syringe IV ×3 (15:24→19:32)
--- NOTE | 2022-07-11 15:25 | ADDICTION ---
This insurance writer met with client to develop d/c plan. Client has poor insight to his ETOH use or mental health. Indicates he is only here to make his Dad happy Client has difficulty maintaining focus and staying on task. He does not believe his ETOH is an issue at this time. He declines referrals to AoD treatment. He does agree to meet with a clinician one time to see what it is about. Client denies h/o substance use or treatment.
[2022-07-11 20:33] VITALS: BP 114/88; PULSE 103; RESP 18; TEMP 36.7; O2SAT 99
[2022-07-11] MEDS: hydrOXYzine PAM 25 MG Capsule 50 MG PO (20:54)
--- NOTE | 2022-07-11 21:07 | NURSING ---
pt continues to refuse tele
[2022-07-11] MEDS: traZODone 100 MG Tablet PO (21:22)
[2022-07-12] VITALS (7 sets, daily range): BP systolic 103–150; BP diastolic 65–98; PULSE 71–100; RESP 16–18; TEMP 36.6–37.1; O2SAT 97–100
[2022-07-12] MEDS: Phenobarbital 32.4 MG Tablet PO ×4 (02:42→18:45)
[2022-07-12] MEDS: LORazepam 2 MG/ML Syringe IV (04:36)
[2022-07-12] MEDS: 0.9% Saline Lock 10 ML Syringe IV (04:37)
[2022-07-12 04:53] LABS: Anion Gap 6 (5-15); BUN 6 mg/dL (7-18); BUN/Creat Ratio 12.1 RATIO (10-20); Calcium,Total 8.7 mg/dL (8.5-10.1); Chloride 106 mmol/L (98-107); EST Glomerular Filtration Rate 204 mL/min (>60); Est Glom Filt Rate - Afr Amer 247 mL/min (>60); Estimated Creatinine Clearance 208.17 ml/min; Glucose 99 mg/dL (74-106); Phosphorus 2.3 mg/dL (2.5-4.9); Potassium 3.8 mmol/L (3.5-5.1); Sodium Level 139 mmol/L (136-145)
[2022-07-12] MEDS: Gabapentin 300 MG Capsule PO ×3 (06:39→20:25)
--- NOTE | 2022-07-12 07:52 | PCM.PN.HOSP ---
Reason for Visit Reason for Visit: Diagnoses Alcohol use, unspecified with withdrawal delirium (07/09/22) Alcohol use, unspecified with withdrawal, unspecified (07/09/22) Unspecified convulsions (07/09/22) Subjective Subjective Patient seen continues to experience episodes of agitation and delirium. Patient has Ativan ordered as needed Objective Data Objective Data Vital Signs: Vital Signs Temp Pulse Resp BP Pulse Ox O2 Del Method 98.2 F 71 18 138/94 H 100 Room Air 07/12/22 02:35 07/12/22 04:35 07/12/22 02:35 07/12/22 04:35 07/12/22 02:35 07/12/22 07:21 Oxygen Delivery Method Room Air Weight: 74.9 kg Body Mass Index (BMI) 24.3 Intake & Output: Intake and Output for Last 24 Hours 07/10/22 07/11/22 07/12/22 23:59 23:59 23:59 Intake Total 4120.3333 / 4120.3333 1550 / 1550 200 / 200 Output Total 3200 / 3200 1500 / 1500 Balance 920.3333 / 920.3333 50 / 50 200 / 200 Lab / Micro Data Result Diagrams: 07/10/22 04:20 07/12/22 04:17 Labs: Laboratory Results - last 24 hr 07/12/22 04:17: Sodium 139, Potassium 3.8, Chloride 106, Carbon Dioxide 27.0, Anion Gap 6, BUN 6 L, Creatinine 0.50 L, Estim Creat Clear Calc 208.17, Est GFR (MDRD) Af Amer 247, Est GFR (MDRD) Non-Af 204, BUN/Creatinine Ratio 12.1, Glucose 99, Calcium 8.7, Phosphorus 2.3 L Physical Exam Narrative GENERAL: Agitated HEENT: Atraumatic; normocephalic EYES; Anicteric, Normal Conjunctiva NECK; supple, normal thyroid, RESPIRATORY: Diminished to auscultation CARDIOVASCULAR: Regular S1 S2, GI: soft, normoactive bowel sounds, : No Renal angle tenderness; EXTREMITIES: No edema, no clubbing, MUSCULOSKELETAL: no muscle wasting NEURO: Awake; no lateralizing signs. SKIN: No Rash PSYCH; agitated Assessment & Plan Assessment/Plan (1) Acute hyperactive alcohol withdrawal delirium: (2) Alcohol withdrawal seizure: PLAN: Plan Patient is a 32-year-old gentleman with history of polysubstance dependence including methamphetamine as well as alcohol admitted with acute alcohol withdrawal 1. Acute alcohol withdrawal -patient has been admitted to regular nursing floor being managed with phenobarb taper in addition to adjuvant medications for symptom management ? 07/11/2022 patient remains significantly tremulous plan is to continue with current treatment regimen ? 07/12/2022. Ativan as needed added to patient's treatment regimen for his episodic agitation 2. Severe hypokalemia ? Possibly related to his alcohol use corrected per protocol repeat potassium levels ordered 3. Polysubstance dependence ? Including alcohol as well as methamphetamine counseled on cessation 4. Tobacco dependence - Counseled on cessation, offered nicotine patch for tobacco cravings 5. Anemia - Secondary to chronic disorder monitoring H&H and transfuse if patient becomes symptomatic or hemoglobin falls below 7 6. DVT prophylaxis ? Low risk did encourage any ambulation Time spent in the patient's overall evaluation,decision-making process, review of diagnostic data, adjustment of management, discussion with other providers, nursing nursing and ancillary staff involved in patient's care documentation, 36 minutes Charges/Coding Visit Charges Inpatient E&M: 56324 Subs Hosp L2
[2022-07-12] MEDS: Thiamine Hydrochloride 100 MG Tablet PO (12:05)
[2022-07-12] MEDS: Folic Acid 1 MG Tablet PO (12:05)
[2022-07-12] MEDS: Pantoprazole Sodium 40 MG Tablet PO ×2 (12:05→20:26)
[2022-07-12] MEDS: Potassium Chloride Oral Tablet 20 MEQ PO ×2 (12:05→18:45)
[2022-07-12] MEDS: hydrOXYzine PAM 25 MG Capsule 50 MG PO (19:42)
[2022-07-12] MEDS: LORazepam 1 MG Tablet 2 MG PO (19:42)
[2022-07-12] MEDS: traZODone 100 MG Tablet PO (20:26)
[2022-07-13] MEDS: Phenobarbital 32.4 MG Tablet PO ×3 (00:39→11:36)
[2022-07-13] MEDS: hydrOXYzine PAM 25 MG Capsule 50 MG PO (00:39)
[2022-07-13 03:30] VITALS: BP 124/87; PULSE 74; RESP 18; TEMP 36.6; O2SAT 100
[2022-07-13] MEDS: Gabapentin 300 MG Capsule PO ×2 (05:23→14:35)
[2022-07-13 06:17] LABS: Anion Gap 7 (5-15); BUN 7 mg/dL (7-18); BUN/Creat Ratio 12.6 RATIO (10-20); Calcium,Total 9.2 mg/dL (8.5-10.1); Chloride 103 mmol/L (98-107); Creatinine, Serum 0.55 mg/dL (0.70-1.30); EST Glomerular Filtration Rate 179 mL/min (>60); Est Glom Filt Rate - Afr Amer 217 mL/min (>60); Estimated Creatinine Clearance 189.25 ml/min; Glucose 99 mg/dL (74-106); Phosphorus 2.7 mg/dL (2.5-4.9); Potassium 4.1 mmol/L (3.5-5.1); Sodium Level 138 mmol/L (136-145)
[2022-07-13 07:36] VITALS: BP 134/101; PULSE 92; RESP 18; TEMP 36.6; O2SAT 98
[2022-07-13] MEDS: LORazepam 1 MG Tablet 2 MG PO (07:41)
[2022-07-13] MEDS: Folic Acid 1 MG Tablet PO (07:42)
[2022-07-13] MEDS: Pantoprazole Sodium 40 MG Tablet PO (07:42)
[2022-07-13] MEDS: Thiamine Hydrochloride 100 MG Tablet PO (07:42)
[2022-07-13] MEDS: Potassium Chloride Oral Tablet 20 MEQ PO (07:42)
--- NOTE | 2022-07-13 07:47 | NURSING ---
this RN accidently gave 64.8mg of phenobarb at 0523 instead of the scheduled 32.4mg due to the taper changing over at 0600. daisy belcher
[2022-07-13 07:55] VITALS: O2SAT 95
--- NOTE | 2022-07-13 09:05 | PN.HOSP_ITS ---
Reason for Visit Reason for Visit: Diagnoses Alcohol use, unspecified with withdrawal delirium (07/09/22) Alcohol use, unspecified with withdrawal, unspecified (07/09/22) Unspecified convulsions (07/09/22) Subjective Subjective Patient seen his delirium appears of resolved much more cooperative. Plan is for patient to be assessed for discharge Objective Data Objective Data Vital Signs: Vital Signs Temp Pulse Resp BP Pulse Ox O2 Del Method 97.8 F 92 18 134/101 H 98 Room Air 07/13/22 07:36 07/13/22 07:36 07/13/22 07:36 07/13/22 07:36 07/13/22 07:36 07/13/22 07:50 Oxygen Delivery Method Room Air Weight: 74.9 kg Body Mass Index (BMI) 24.3 Intake & Output: Intake and Output for Last 24 Hours 07/11/22 07/12/22 07/13/22 23:59 23:59 23:59 Intake Total 1550 / 1550 1000 / 1000 Output Total 1500 / 1500 1050 / 1050 Balance 50 / 50 -50 / -50 Lab / Micro Data Result Diagrams: 07/10/22 04:20 07/13/22 04:24 Labs: Laboratory Results - last 24 hr 07/13/22 04:24: Sodium 138, Potassium 4.1, Chloride 103, Carbon Dioxide 28.0, Anion Gap 7, BUN 7, Creatinine 0.55 L, Estim Creat Clear Calc 189.25, Est GFR (MDRD) Af Amer 217, Est GFR (MDRD) Non-Af 179, BUN/Creatinine Ratio 12.6, Glucose 99, Calcium 9.2, Phosphorus 2.7 Physical Exam Narrative GENERAL: Cooperative HEENT: Atraumatic; normocephalic EYES; Anicteric, Normal Conjunctiva NECK; supple, normal thyroid, RESPIRATORY: Diminished to auscultation CARDIOVASCULAR: Regular S1 S2, GI: soft, normoactive bowel sounds, : No Renal angle tenderness; EXTREMITIES: No edema, no clubbing, MUSCULOSKELETAL: no muscle wasting NEURO: Awake; no lateralizing signs. SKIN: No Rash Assessment & Plan Assessment/Plan (1) Acute hyperactive alcohol withdrawal delirium: (2) Alcohol withdrawal seizure: PLAN: Plan Patient is a 32-year-old gentleman with history of polysubstance dependence inc luding methamphetamine as well as alcohol admitted with acute alcohol withdrawal 1. Acute alcohol withdrawal -patient has been admitted to regular nursing floor being managed with phenobarb taper in addition to adjuvant medications for symptom management ? 07/11/2022 patient remains significantly tremulous plan is to continue with current treatment regimen ? 07/12/2022. Ativan as needed added to patient's treatment regimen for his episodic agitation 2. Severe hypokalemia ? Possibly related to his alcohol use corrected per protocol repeat potassium levels ordered 3. Polysubstance dependence ? Including alcohol as well as methamphetamine counseled on cessation 4. Tobacco dependence - Counseled on cessation, offered nicotine patch for tobacco cravings 5. Anemia - Secondary to chronic disorder monitoring H&H and transfuse if patient becomes symptomatic or hemoglobin falls below 7 6. DVT prophylaxis ? Low risk did encourage any ambulation Time spent in the patient's overall evaluation,decision-making process, review of diagnostic data, adjustment of management, discussion with other providers, nursing nursing and ancillary staff involved in patient's care documentation, 36 minutes Charges/Coding Visit Charges Inpatient E&M: 26780 Subs Hosp L2
--- NOTE | 2022-07-13 09:06 | PCM.DC.SUM ---
Providers Date of Admission: 07/09/22 Primary Care Physician: No Primary Care Phys Reason For Visit: ACUTE ETOH WITHDRAWAL,RECENT ETOH WITHDRAWAL SEIZU Diagnosis Discharge Diagnosis (1) Acute hyperactive alcohol withdrawal delirium: Status: Acute Code(s): F10.931 - Alcohol use, unspecified with withdrawal delirium (2) Alcohol withdrawal seizure: Status: Acute Code(s): F10.939 - Alcohol use, unspecified with withdrawal, unspecified; R56.9 - Unspecified convulsions Plan Patient is a 32-year-old gentleman with history of polysubstance dependence including methamphetamine as well as alcohol admitted with acute alcohol withdrawal 1. Acute alcohol withdrawal -patient has been admitted to regular nursing floor being managed with phenobarb taper in addition to adjuvant medications for symptom management ? 07/11/2022 patient remains significantly tremulous plan is to continue with current treatment regimen ? 07/12/2022. Ativan as needed added to patient's treatment regimen for his episodic agitation 2. Severe hypokalemia ? Possibly related to his alcohol use corrected per protocol repeat potassium levels ordered 3. Polysubstance dependence ? Including alcohol as well as methamphetamine counseled on cessation 4. Tobacco dependence - Counseled on cessation, offered nicotine patch for tobacco cravings 5. Anemia - Secondary to chronic disorder monitoring H&H and transfuse if patient becomes symptomatic or hemoglobin falls below 7 6. DVT prophylaxis ? Low risk did encourage any ambulation Time spent in the patient's overall evaluation,decision-making process, review of diagnostic data, adjustment of management, discussion with other providers, nursing nursing and ancillary staff involved in patient's care documentation, 36 minutes Medications at Discharge Home Medications NK 07/09/22 Hospital Course Summary of Care Provided Minutes Spent on Discharge: 36 Physical Exam Narrative GENERAL: Cooperative HEENT: Atraumatic; normocephalic EYES; Anicteric, Normal Conjunctiva NECK; supple, normal thyroid, RESPIRATORY: Diminished to auscultation CARDIOVASCULAR: Regular S1 S2, GI: soft, normoactive bowel sounds, : No Renal angle tenderness; EXTREMITIES: No edema, no clubbing, MUSCULOSKELETAL: no muscle wasting NEURO: Awake; no lateralizing signs. SKIN: No Rash Weight / BMI Weight Weight: 74.9 kg Body Mass Index (BMI) 24.3 ABG / Lab / Microbiology Data Result Diagrams: 07/10/22 04:20 07/13/22 04:24 Laboratory: Laboratory Results - last 24 hr 07/13/22 04:24: Sodium 138, Potassium 4.1, Chloride 103, Carbon Dioxide 28.0, Anion Gap 7, BUN 7, Creatinine 0.55 L, Estim Creat Clear Calc 189.25, Est GFR (MDRD) Af Amer 217, Est GFR (MDRD) Non-Af 179, BUN/Creatinine Ratio 12.6, Glucose 99, Calcium 9.2, Phosphorus 2.7 D/C Instructions Discharge Diet: No restrictions Discharge Activity: Return to Normal Activity Call your doctor if you observe: Fever of 101 or Higher, Shortness of breath, Fainting spells and Chest pain Meaningful Use Info Meaningful Use Diagnoses (Choose all that apply): None applicable Discharge Plan Admission Admit Date/Time: 07/09/22 13:31 Attending Provider: Tucker Mariscal Primary Care Provider: Care Physician,No Primary Consulting Providers: Aisha Padgett Discharge Orders/Prescriptions Prescriptions: No Action NK Referrals / Follow Up: Care Physician,No Primary [Primary Care Provider] - NOT,DEFINED [Non-Staff] - Disposition Disposition (needs filled in before D/C Order can be placed): Home, Self Care Charges/Coding Visit Charges Inpatient E&M: 75510 Disch Hosp >30min
[2022-07-13 14:36] VITALS: BP 113/78; PULSE 97; RESP 18; TEMP 36.5; O2SAT 97
== END 2022-07-13 15:40 | disposition home or self-care (01) | DRG 897 ==
LOC: ED 15:10 → MS3 07-10 07:13
PROVIDERS: Hospitalist; Admitting Provider Family Medicine; Emergency Provider Emergency Medicine; Visit Provider Internal Medicine
DX: F10.231 Alcohol dependence with withdrawal delirium (principal); F15.20 Other stimulant dependence, uncomplicated; D63.8 Anemia in other chronic diseases classified elsewhere; E87.6 Hypokalemia; M16.11 Unilateral primary osteoarthritis, right hip; F17.210 Nicotine dependence, cigarettes, uncomplicated; Y90.0 Blood alcohol level of less than 20 mg/100 ml; G89.29 Other chronic pain
CPT/HCPCS: 36415; 80048; 80053; 80307; 81001; 82077; 82607; 82728; 82746; 83540; 83550; 83735; 84100; 85025; 99284; J7030; J7040; J7050; J7120; A4216

== ENCOUNTER 2022-10-15 17:58 | Inpatient (IN) | payer SELFPAY ==
[2022-10-15 17:59] VITALS: BP 162/129; PULSE 146; RESP 24; TEMP 36.6; O2SAT 99
[2022-10-15 18:00] VITALS: BMI 25.1
--- NOTE | 2022-10-15 18:14 | EKG12_ITS ---
Test Reason : DYSRHYTHMIA Blood Pressure : / mmHG Vent. Rate : 120 BPM Atrial Rate : 120 BPM P-R Int : 114 ms QRS Dur : 084 ms QT Int : 320 ms P-R-T Axes : 080 073 -04 degrees QTc Int : [address] & T wave abnormality, consider inferior ischemia Abnormal ECG Confirmed by ESSENCE ANTUNEZ, CATHY ([id number]), photography editor MANJULA SIMON ([id number]) on 10/16/2022 9:51:23 AM Referred By: SONYA Confirmed By:CATHY LOWRY MD
[2022-10-15 18:18] VITALS: BP 159/99; PULSE 120; RESP 20; O2SAT 100
--- NOTE | 2022-10-15 18:18 | ED.RN ---
NO OLD EKGS LISTED.
[2022-10-15] MEDS: LORazepam 2 MG/ML Syringe IV (18:43)
[2022-10-15] MEDS: 0.9% Normal Saline 1,000 ML 1000 ML IV (18:43)
--- NOTE | 2022-10-15 18:44 | EDS_ITS ---
HPI History of Present Illness Chief Complaint: Substance Abuse Informant: patient and parent Narrative Narrative: Patient presents for alcohol withdrawal symptoms. Patient last went through detox possibly a few months ago but there is questions on this. He drinks about 1/5 and occasionally more of 80-90 proof vodka every day. He has had withdrawal seizures in the past. He has not had a seizure this time. His last drink was about 36 hours ago. He does feel shaky. He has had nausea and vomiting today but it started after he stopped drinking rather than causing him to stop drinking. When I ask him about hallucinations he states he is starting to see what he describes as shapes but no formed hallucination. He denies any medical complaints. He is not on any prescribed medicines long-term. 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 Surgical History No history of previous surgery Social History household members: other details: Lives with his father. Smoking Status: Current every day smoker tobacco type: cigarettes alcohol intake: current alcohol intake frequency: 3 or more drinks per day details: 750 ml bottle vodka current daily. substance use type: methamphetamine ROS ROS ED ROS Narrative A complete review of systems was performed and is negative except as documented in the history of present illness. Some specific details below. Constitutional: No recent fevers but he has felt chills but thinks this is part of withdrawal. EYE: No visual complaints or pain. He does have some hallucinations of seeing shapes but his vision is overall normal. ENT: No difficulty swallowing. No swelling. No pain. CV: No chest pain but he does have a racing heart. He does not have symptoms related to this though. Respiratory: No dyspnea. No hemoptysis. No difficulty taking breaths. GI: Positive nausea and vomiting but denies any GI bleeding, hematemesis or melena. : No frequency dysuria or hematuria. Musculoskeletal: No recent trauma. No pains. Skin: No rash. Mild diaphoresis at times. Neuro: No weakness or numbness. He has had some mild visual hallucinations. Endocrine: No polyuria or polydipsia. EXAM Physical Exam Narrative Exam Narrative: CONSTITUTIONAL: When I walk in the room patient introduces himself but he does appear shaky. He has a mild tremor. Overall he looks like he is in a fair amount of withdrawal at this time. HEENT: No notable trauma. Mucous membranes mildly dry. No sinus tenderness. EYES: No conjunctival injection. No icterus. CARDIOVASCULAR: Tachycardic rate but does appear to have a regular rhythm. No notable murmur. No JVD. RESPIRATORY: No respiratory distress. Breathing is unlabored. No wheezes. No rhonchi. No rales. No pain with a deep breath. GASTROINTESTINAL: Not distended. Bowel sounds are normal. No tenderness. No guarding. No rebound. No palpable mass. No bruit. GENITOURINARY: No tenderness over the bladder. No CVA tenderness. MUSCULOSKELETAL: Atraumatic. No peripheral edema. No cord. No tenderness along the deep venous system. No asymmetry. NEUROLOGICAL: Patient is alert and is oriented x3 at this time. However he has a fine diffuse tremor all over. No significant asterixis. SKIN: No noted rashes. Patient's skin is not palpably moist but does feel just a little tacky. No gross diaphoresis though. PSYCHIATRIC: Patient is anxious but cooperative. Const Vital Signs: 10/15/22 17:59 10/15/22 18:18 10/15/22 19:20 Temperature 98 F Temperature Source Temporal Pulse Rate 146 H 120 H 102 H Respiratory Rate 24 H 20 H 17 Blood Pressure 162/129 H 159/99 H 126/95 H Blood Pressure Mean 140 119 105 Blood Pressure Source Monitor Blood Pressure Position Semi-Fowlers Blood Pressure Location Right Arm Pulse Ox 99 100 97 Oxygen Delivery Method Room Air Room Air Room Air MDM MDM MDM Narrative Medical decision making narrative: 19: 15 Patient's rechecked. He still has mild tremor but is much calmer. He feels more relaxed. He states he feels better. He is not having the hallucinations now. His heart rate is down to about 105. He denies any symptoms of nausea. Patient CBC shows normal hemoglobin and white count. But he does have low platelets but this is likely due to his heavy alcohol use. He is not having any history of bleeding. Electrolytes show mildly low sodium. Glucose was slightly up at 146. His anion gap was elevated showing suspicion for alcoholic ketoacidosis. He was started on D5 saline fluids. But he is already feeling better and not nauseated. This should self correct. Liver function tests do show some slight elevations of his bilirubin and AST. Again, this is likely from his drinking. His alcohol level is less than 3 consistent with his withdrawal symptoms. Toxicology screen is negative. Lactate is pending but I am suspicious this may be up because of his presentation. But he is given IV fluids and D5 that should correct this. He is interested in coming in for detox. Case is discussed with hospitalist. Patient was also given thiamine and folate. Lactate did come back just mildly elevated. But he is given fluids and is overall feeling better. Lab Data Attestation: I reviewed the patient's lab results. Labs: Laboratory Results - last 24 hr 10/15/22 10/15/22 10/15/22 18:35 18:35 18:35 WBC 9.5 RBC 5.03 Hgb 14.1 Hct 42.5 MCV 84.5 MCH 28.0 MCHC 33.2 RDW Std Deviation 49.5 H RDW Coeff of Mono 16.4 H Plt Count 96 L MPV 11.7 Immature Gran % (Auto) 0.500 Neut % (Auto) 89.7 H Lymph % (Auto) 5.3 L [place] % (Auto) 3.9 Eos % (Auto) 0.0 Baso % (Auto) 0.6 Absolute Neuts (auto) 8.5 H Absolute Lymphs (auto) 0.50 L Nucleated RBC % 0 Differential Comment SCANNED Sodium 131 L Potassium 3.5 Chloride 86 L Carbon Dioxide 21.0 Anion Gap 24 H BUN 11 Creatinine 1.00 Estim Creat Clear Calc 100.70 Est GFR (MDRD) Af Amer 110 Est GFR (MDRD) Non-Af 91 BUN/Creatinine Ratio 11.0 Glucose 146 H Lactic Acid Calcium 10.1 Total Bilirubin 1.70 H AST 85 H ALT 40 Alkaline Phosphatase 90 Total Protein 8.7 H Albumin 3.8 Globulin 4.9 H Albumin/Globulin Ratio 0.8 L Urine Opiates Screen Urine Methadone Screen Ur Barbiturates Screen Ur Phencyclidine Scrn Ur Amphetamines Screen MDMA (Ecstasy) Screen U Benzodiazepines Scrn Urine Cocaine Screen U Cannabinoids Screen Ur Drug Screen Comment Ethyl Alcohol < 3.0 10/15/22 10/15/22 10/15/22 18:35 18:35 19:27 WBC RBC Hgb Hct MCV MCH MCHC RDW Std Deviation RDW Coeff of Mono Plt Count MPV Immature Gran % (Auto) Neut % (Auto) Lymph % (Auto) [place] % (Auto) Eos % (Auto) Baso % (Auto) Absolute Neuts (auto) Absolute Lymphs (auto) Nucleated RBC % Differential Comment Sodium Potassium Chloride Carbon Dioxide Anion Gap BUN Creatinine Estim Creat Clear Calc Est GFR (MDRD) Af Amer Est GFR (MDRD) Non-Af BUN/Creatinine Ratio Glucose Lactic Acid Cancelled 2.2 H* Calcium Total Bilirubin AST ALT Alkaline Phosphatase Total Protein Albumin Globulin Albumin/Globulin Ratio Urine Opiates Screen NEGATIVE Urine Methadone Screen NEGATIVE Ur Barbiturates Screen NEGATIVE Ur Phencyclidine Scrn NEGATIVE Ur Amphetamines Screen NEGATIVE MDMA (Ecstasy) Screen NEGATIVE U Benzodiazepines Scrn NEGATIVE Urine Cocaine Screen NEGATIVE U Cannabinoids Screen NEGATIVE Ur Drug Screen Comment Ethyl Alcohol EKG Initial EKG: Comments: My independent interpretation of patient's EKG done for tachycardia shows sinus rhythm with tachycardic rate at 120. No ventricular ectopy. Nonspecific changes but no sign of acute infarct. CO interval QRS duration and QTc are normal. Management Discussion w/another healthcare provider: Hospitalist Discharge Plan Dx/Rx/DC Orders Clinical Impression: ETOH abuse, Desire for detoxification Disposition Disposition: Acute Care Hospital [facility] Discharge Date/Time: 10/15/22 20:26
--- NOTE | 2022-10-15 18:47 | NURSING ---
ramp program consent signed and pt in gown only with belongings in bag. agreeable to stay and aware of 3night minimum
[2022-10-15 18:54] LABS: Absolute Neutrophil Count 8.5 X10^3/uL (2.0-7.7); Basophil# 0.06 X10^3/uL; Basophil% 0.6 % (0-1); Hematocrit 42.5 % (40-54); Hemoglobin 14.1 g/dL (13.0-16.5); Lymphocyte % 5.3 % (19-41); Mean Corp Hgb Conc 33.2 g/dL (32-36); Mean Corpuscular Volume 84.5 fL (80-94); Mean Platelet Vol. 11.7 fl (6.2-12.0); Monocyte# 0.37 X10^3/uL; Monocyte% 3.9 % (0-10); NRBC Flagged by Analyzer 0 % (0-5); Neutrophil # 8.48 X10^3/uL (2.7-7.7); Neutrophil % 89.7 % (47-70); POSITIVE COUNT YES; POSITIVE DIFFERENTIAL YES; Platelet Count 96 K/mm3 (150-450); RBC Distribution Width CV 16.4 % (11.6-14.6); RBC Distribution Width SD 49.5 fl (35.1-43.9); Red Blood Count 5.03 M/mm3 (4.6-6.2); White Blood Count 9.5 K/mm3 (4.4-11.0)
[2022-10-15 18:56] LABS: Differential Indicated SCAN CRITERIA MET
[2022-10-15 19:08] LABS: ALB/GLOB Ratio 0.8 RATIO (0.9-2.4); AST(SGOT) 85 U/L (15-37); Alanine Aminotransfer ALT/SGPT 40 U/L (16-61); Albumin, Serum 3.8 g/dL (3.2-5.0); Alkaline Phosphatase 90 U/L (45-117); Anion Gap 24 (5-15); BUN 11 mg/dL (7-18); Calcium,Total 10.1 mg/dL (8.5-10.1); Chloride 86 mmol/L (98-107); EST Glomerular Filtration Rate 91 mL/min (>60); Est Glom Filt Rate - Afr Amer 110 mL/min (>60); Globulin 4.9 g/dL (2.2-4.2); Glucose 146 mg/dL (74-106); Potassium 3.5 mmol/L (3.5-5.1); Protein, Total 8.7 g/dL (6.4-8.2); Sodium Level 131 mmol/L (136-145)
[2022-10-15 19:10] LABS: Alcohol, Blood (Medical)-Serum < 3.0 mg/dL; Amphetamine Urine VISTA NEGATIVE (<1000 ng/mL); Barbiturate Urine VISTA NEGATIVE (< 200 ng/mL); Benzodiazepine Urine VISTA NEGATIVE (< 200 ng/mL); Cocaine Urine VISTA NEGATIVE (< 300 ng/mL); Ecstacy Urine VISTA NEGATIVE (< 500 ng/mL); Methadone Urine VISTA NEGATIVE (< 300 ng/mL); PCP Urine VISTA NEGATIVE (< 25 ng/mL); THC Urine VISTA NEGATIVE (< 50 ng/mL); Vista UDS pH Range 5
[2022-10-15 19:20] VITALS: BP 126/95; PULSE 102; RESP 17; O2SAT 97
[2022-10-15 19:43] LABS: Differential Comment SCANNED
[2022-10-15] MEDS: Dextrose 5%/0.9% NaCl 1,000 ML 200 ML IV (19:50)
--- NOTE | 2022-10-15 19:51 | PCM.HP.STD ---
HPI - General General Date of Admission: 10/15/22 Date of Service: 10/15/22 Chief Complaint: Desire for detoxification HPI Narrative NICOLAS MARIE, is a 32 M with a significant history of alcoholism with previous alcohol withdrawal seizures; and tobacco abuse who presents to the emergency department for alcohol detoxification. Patient has been drinking for the past 4 years. He reports drinking about a fifth of 80 to 90% alcohol proof vodka. Last time he drank was about 2 days before presentation. He reports withdrawal symptoms of nausea, vomiting, anorexia, unsteady gait, tremors, auditory hallucinations, and visual hallucinations. Patient has been to detox in the past. 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 Surgical History No history of previous surgery Social History household members: other details: Lives with his father. Smoking Status: Current every day smoker tobacco type: cigarettes alcohol intake: current alcohol intake frequency: 3 or more drinks per day details: 750 ml bottle vodka current daily. substance use type: methamphetamine ROS ROS Narrative Pertinent positives and pertinent negatives as noted in HPI. All other systems were reviewed and are negative Vital Signs Vital Signs Vital Signs: 10/15/22 17:59 10/15/22 18:18 10/15/22 19:20 Temperature 98 F Temperature Source Temporal Pulse Rate 146 H 120 H 102 H Respiratory Rate 24 H 20 H 17 Blood Pressure 162/129 H 159/99 H 126/95 H Blood Pressure Mean 140 119 105 Blood Pressure Source Monitor Blood Pressure Position Semi-Fowlers Blood Pressure Location Right Arm Pulse Ox 99 100 97 Oxygen Delivery Method Room Air Room Air Room Air Weight Weight: 74.9 kg Body Mass Index (BMI) 25.1 Physical Exam Narrative Physical exam: General: Well-nourished, well-developed. Head: Normocephalic, atraumatic, no tenderness Eyes: Vision is grossly intact. EOMI ENT, no trauma, moist mucous membranes, no rhinorrhea Neck: Nontender, No thyromegaly. CVS: Regular rate and rhythm. S1-S2 present. No murmur, gallop or rub. Respiratory : clear to auscultation bilaterally, chest wall nontender Abdomen: Soft, nontender, nondistended, normal bowel sounds, no masses : Deferred Back: Nontender, no CVA tenderness, no midline spinal tenderness, deformities, step-offs Extremities: Nontender full range of motion, no trauma Skin: Normal color, no trauma, abrasions Neuro: Alert, oriented, cranial nerves II through XII grossly intact. Tremors. Asterixis. Psychiatry: Normal mood. Normal affect. Not depressed. Not anxious. Results Lab / Micro Data Attestation: I reviewed the patient's lab results. Result Diagrams: 10/15/22 18:35 10/15/22 18:35 Labs: Laboratory Results - last 24 hr 10/15/22 18:35: WBC 9.5, RBC 5.03, Hgb 14.1, Hct 42.5, MCV 84.5, MCH 28.0, MCHC 33.2, RDW Std Deviation 49.5 H, RDW Coeff of Mono 16.4 H, Plt Count 96 L, MPV 11.7, Immature Gran % (Auto) 0.500, Neut % (Auto) 89.7 H, Lymph % (Auto) 5.3 L, [place] % (Auto) 3.9, Eos % (Auto) 0.0, Baso % (Auto) 0.6, Absolute Neuts (auto) 8.5 H, Absolute Lymphs (auto) 0.50 L, Nucleated RBC % 0, Differential Comment SCANNED 10/15/22 18:35: Sodium 131 L, Potassium 3.5, Chloride 86 L, Carbon Dioxide 21.0, Anion Gap 24 H, BUN 11, Creatinine 1.00, Estim Creat Clear Calc 100.70, Est GFR (MDRD) Af Amer 110, Est GFR (MDRD) Non-Af 91, BUN/Creatinine Ratio 11.0, Glucose 146 H, Calcium 10.1, Total Bilirubin 1.70 H, AST 85 H, ALT 40, Alkaline Phosphatase 90, Total Protein 8.7 H, Albumin 3.8, Globulin 4.9 H, Albumin/Globulin Ratio 0.8 L 10/15/22 18:35: Ethyl Alcohol < 3.0 10/15/22 18:35: Lactic Acid Cancelled 10/15/22 18:35: Urine Opiates Screen NEGATIVE, Urine Methadone Screen NEGATIVE, Ur Barbiturates Screen NEGATIVE, Ur Phencyclidine Scrn NEGATIVE, Ur Amphetamines Screen NEGATIVE, MDMA (Ecstasy) Screen NEGATIVE, U Benzodiazepines Scrn NEGATIVE, Urine Cocaine Screen NEGATIVE, U Cannabinoids Screen NEGATIVE, Ur Drug Screen Comment Assessment & Plan Assessment/Plan (1) ETOH abuse: (2) Desire for detoxification: PLAN: Plan Alcohol dependence and desire for detoxification Patient be started on phenobarbital and other adjunctive medications: Gabapentin as needed; dicyclomine as needed; Vistaril as needed; Imodium as needed; trazodone as needed; Zofran as needed; scheduled thiamine; and schedule folic acid. Monitor CIWA score Tobacco abuse Counseled Scheduled nicotine patch prescribed. As needed nicotine gum ordered. Alcoholic hepatitis/hyperbilirubinemia AST of 85. ALT of 40. AST over ALT 2.125 alcoholic pattern. Total bilirubin of 1.70. PT/INR ordered to check Maddrey score. Trend CMP. Anion gap metabolic acidosis Bicarb low normal. Gap of 24. Lactic acid pending. Serum acetone ordered. Started on dextrose infusion and half-normal saline at the ED. Thiamine given on presentation to the ED. With history of hypokalemia. Supplementation added to dextrose infusion. Hyponatremia Sodium of 131. Chloride of 86. Likely secondary to beer potomania. Alcohol treatment as above. Trend CMP. DVT prophylaxis Low risk Encourage to ambulate Charges/Coding Visit Charges Inpatient E&M: 30243 Init Hosp L2
[2022-10-15 20:14] VITALS: BP 130/82; PULSE 98; RESP 19; TEMP 36.8; O2SAT 99
[2022-10-15 20:37] LABS: Lactic Acid 2.2 mmol/L (0.4-1.9)
[2022-10-15 20:41] VITALS: BMI 25.0
[2022-10-15 20:49] VITALS: BP 152/75; PULSE 114; RESP 18; TEMP 36.8; O2SAT 99
[2022-10-15] MEDS: Phenobarbital 32.4 MG Tablet PO (21:44)
[2022-10-15] MEDS: traZODone 100 MG Tablet PO (21:44)
[2022-10-15] MEDS: Dicyclomine 10 MG Capsule 20 MG PO (21:44)
[2022-10-15] MEDS: Thiamine Hydrochloride 200 MG/2 ML Vial 100 MG IM (22:02)
[2022-10-15 23:40] LABS: Reflex Lactate? Y
[2022-10-16 00:33] LABS: Lactic Acid 1.2 mmol/L (0.4-1.9)
[2022-10-16] MEDS: Phenobarbital 32.4 MG Tablet PO ×6 (00:36→20:16)
[2022-10-16] MEDS: KCL 20MEQ in 0.45%NS 20 MEQ/1,000 ML IV.SOLN. 100 MEQ IV ×2 (00:37→10:16)
[2022-10-16 05:13] VITALS: BP 127/94; PULSE 120; RESP 18; TEMP 36.7; O2SAT 98
[2022-10-16 06:47] LABS: Prothrombin Time (Protime)PT. 13.5 SECONDS (11.7-14.9)
[2022-10-16 06:55] LABS: ALB/GLOB Ratio 0.8 RATIO (0.9-2.4); AST(SGOT) 56 U/L (15-37); Alanine Aminotransfer ALT/SGPT 29 U/L (16-61); Albumin, Serum 3.1 g/dL (3.2-5.0); Alkaline Phosphatase 68 U/L (45-117); Anion Gap 8 (5-15); BUN 8 mg/dL (7-18); BUN/Creat Ratio 13.6 RATIO (10-20); Calcium,Total 9.1 mg/dL (8.5-10.1); Chloride 95 mmol/L (98-107); Creatinine, Serum 0.59 mg/dL (0.70-1.30); EST Glomerular Filtration Rate 167 mL/min (>60); Est Glom Filt Rate - Afr Amer 202 mL/min (>60); Estimated Creatinine Clearance 170.68 ml/min; Globulin 3.8 g/dL (2.2-4.2); Glucose 95 mg/dL (74-106); Potassium 3.4 mmol/L (3.5-5.1); Protein, Total 6.9 g/dL (6.4-8.2); Sodium Level 132 mmol/L (136-145)
--- NOTE | 2022-10-16 07:39 | PN.HOSP_ITS ---
Reason for Visit Reason for Visit: Diagnoses Alcohol abuse, uncomplicated (10/15/22) Subjective Subjective Feeling much better. Does complain of a slight tremor. But felt better after medications as well as IV fluids Objective Data Objective Data Vital Signs: Vital Signs Temp Pulse Resp BP Pulse Ox O2 Del Method 36.7 C 120 H 18 127/94 H 98 Room Air 10/16/22 05:13 10/16/22 05:13 10/16/22 05:13 10/16/22 05:13 10/16/22 05:13 10/16/22 05:13 Oxygen Delivery Method Room Air Weight: 74.7 kg Body Mass Index (BMI) 25.0 Intake & Output: Intake and Output for Last 24 Hours 10/14/22 10/15/22 10/16/22 23:59 23:59 23:59 Intake Total 1000 / 1100 1150.2 / 1150.2 Balance 1000 / 1100 1150.2 / 1150.2 Lab / Micro Data Result Diagrams: 10/15/22 18:35 10/16/22 06:05 Labs: Laboratory Results - last 24 hr 10/15/22 18:35: WBC 9.5, RBC 5.03, Hgb 14.1, Hct 42.5, MCV 84.5, MCH 28.0, MCHC 33.2, RDW Std Deviation 49.5 H, RDW Coeff of Mono 16.4 H, Plt Count 96 L, MPV 11.7, Immature Gran % (Auto) 0.500, Neut % (Auto) 89.7 H, Lymph % (Auto) 5.3 L, [place] % (Auto) 3.9, Eos % (Auto) 0.0, Baso % (Auto) 0.6, Absolute Neuts (auto) 8.5 H, Absolute Lymphs (auto) 0.50 L, Nucleated RBC % 0, Differential Comment SCANNED 10/15/22 18:35: Sodium 131 L, Potassium 3.5, Chloride 86 L, Carbon Dioxide 21.0, Anion Gap 24 H, BUN 11, Creatinine 1.00, Estim Creat Clear Calc 100.70, Est GFR (MDRD) Af Amer 110, Est GFR (MDRD) Non-Af 91, BUN/Creatinine Ratio 11.0, Glucose 146 H, Calcium 10.1, Total Bilirubin 1.70 H, AST 85 H, ALT 40, Alkaline Phosphatase 90, Total Protein 8.7 H, Albumin 3.8, Globulin 4.9 H, Albumin/Globulin Ratio 0.8 L 10/15/22 18:35: Ethyl Alcohol < 3.0 10/15/22 18:35: Lactic Acid Cancelled 10/15/22 18:35: Urine Opiates Screen NEGATIVE, Urine Methadone Screen NEGATIVE, Ur Barbiturates Screen NEGATIVE, Ur Phencyclidine Scrn NEGATIVE, Ur Amphetamines Screen NEGATIVE, MDMA (Ecstasy) Screen NEGATIVE, U Benzodiazepines Scrn NEGATIVE, Urine Cocaine Screen NEGATIVE, U Cannabinoids Screen NEGATIVE, Ur Drug Screen Comment 10/15/22 19:27: Lactic Acid 2.2 H* 10/15/22 20:01: Acetone Level MODERATE H 10/15/22 23:57: Lactic Acid 1.2 10/16/22 06:05: PT 13.5, INR 1.0 10/16/22 06:05: Sodium 132 L, Potassium 3.4 L, Chloride 95 L, Carbon Dioxide 29.0, Anion Gap 8, BUN 8, Creatinine 0.59 L, Estim Creat Clear Calc 170.68, Est GFR (MDRD) Af Amer 202, Est GFR (MDRD) Non-Af 167, BUN/Creatinine Ratio 13.6, Glucose 95, Calcium 9.1, Total Bilirubin 1.30 H, AST 56 H, ALT 29, Alkaline Phosphatase 68, Total Protein 6.9, Albumin 3.1 L, Globulin 3.8, Albumin/Globulin Ratio 0.8 L Physical Exam Const alert and no apparent distress HEENT head/scalp atraumatic and moist oral mucous membranes Assessment & Plan Assessment/Plan (1) ETOH abuse: PLAN: Last drink was 2 days prior to admission. Patient has been initiated and receiving a phenobarbital taper. Continue with. Medications for other somatic complaints with his withdrawal. Thiamine and folate (2) Alcoholic hepatitis: PLAN: with hyperbilirubinemia AST tredning down. Bili trending down. INR 1 (3) Metabolic acidosis: PLAN: Anion gap metabolic acidosis. Now resolved. May have been due to nausea and vomiting. Bicarb low normal. Gap of 24. Lactic acid 2.2 on admission, then 1.2 Serum acetone elevated Started on dextrose infusion and half-normal saline at the ED. Thiamine given on presentation to the ED. With history of hypokalemia. Supplementation added to dextrose infusion. (4) Hypokalemia: PLAN: Dipped down from 3.5-3.4 despite replacement. Per that may have been due to the metabolic acidosis. Would continue with replacement and monitor. (5) Hyponatremia: PLAN: Slowly improved Sodium of 131. Chloride of 86. Patient drinks alcohol and had not drank about 2 days prior to arrival so I do not feel that this was beer Potomania. (6) Hypomagnesemia: PLAN: 1.2 Replace Recheck PLAN: Plan Tobacco abuse Counseled Scheduled nicotine patch prescribed. As needed nicotine gum ordered. DVT prophylaxis Low risk Encourage to ambulate Disposition: To be determined. We will reevaluate the patient on the to see if medically he is ready for discharge. Patient has plans to follow-up with a program around [place]. Charges/Coding Visit Charges Inpatient E&M: 52018 Subs Hosp L2
[2022-10-16 08:11] LABS: Magnesium 1.2 mg/dL (1.6-2.6)
[2022-10-16] MEDS: Thiamine Hydrochloride 100 MG Tablet PO (10:05)
[2022-10-16] MEDS: Folic Acid 1 MG Tablet PO (10:05)
[2022-10-16 10:09] VITALS: BP 133/92; PULSE 105; RESP 18; TEMP 36.6; O2SAT 98
[2022-10-16] MEDS: Nicotine Polacrilex 2 MG GUM PO (10:19)
[2022-10-16] MEDS: Magnesium Sulfate 4gm/100mL 4 GM/100 ML IV.SOLN. IV (12:40)
[2022-10-16 14:00] VITALS: BP 121/81; PULSE 93; RESP 18; TEMP 36.6; O2SAT 99
--- NOTE | 2022-10-16 16:03 | CASEMGMT ---
Social work Pt listed as self-pay. DANNY met with pt, introduced self and [facility] [employer] [facility] [facility]. SW also emailed [employer] to inform pt will need assistance with completing a Medicaid application. JANEL Cross
[2022-10-16 18:18] VITALS: BP 151/105; PULSE 109; RESP 18; TEMP 37; O2SAT 100
[2022-10-16 20:13] VITALS: BP 153/105; PULSE 95; RESP 14; TEMP 36.7; O2SAT 100
[2022-10-16] MEDS: Gabapentin 300 MG Capsule PO (20:16)
[2022-10-16] MEDS: traZODone 100 MG Tablet PO (20:16)
[2022-10-16] MEDS: hydrOXYzine PAM 25 MG Capsule 50 MG PO (21:41)
--- NOTE | 2022-10-16 21:42 | PCM.HOSP.N ---
Hospitalist Note Patient with increased agitation and ongoing alcohol withdrawal symptoms. Discussed with nursing staff and if able to obtain IV access will place CIWA protocol for oral and IV Ativan as needed as well as planned IV administration of IV phenobarbital at least x1 and if necessary may transition to IV as well. If this does not seem effective then may need to consider transition to the unit for potentially precedex usage.
[2022-10-16] MEDS: LORazepam 1 MG Tablet 2 MG PO (22:26)
[2022-10-16] MEDS: Phenobarbital Sodium 65 MG/ML Vial 150 MG IV (23:19)
[2022-10-17] VITALS (17 sets, daily range): BP systolic 83–128; BP diastolic 52–86; PULSE 72–115; RESP 14–20; TEMP 36.4–37; O2SAT 97–100
[2022-10-17] MEDS: Phenobarbital 32.4 MG Tablet PO ×4 (02:01→20:00)
[2022-10-17] MEDS: 0.9% Saline Lock 10 ML Syringe IV ×2 (02:02→19:34)
[2022-10-17] MEDS: LORazepam 2 MG/ML Syringe IV ×2 (02:02→19:33)
[2022-10-17] MEDS: LORazepam 1 MG Tablet 2 MG PO (04:17)
--- NOTE | 2022-10-17 05:09 | NURSING ---
Patient refused vitals signs and this RN to assess him. Patient also pulled out his IV and is refusing to let a new one be inserted.
[2022-10-17 07:46] LABS: ALB/GLOB Ratio 0.9 RATIO (0.9-2.4); AST(SGOT) 218 U/L (15-37); Alanine Aminotransfer ALT/SGPT 66 U/L (16-61); Albumin, Serum 3.6 g/dL (3.2-5.0); Alkaline Phosphatase 74 U/L (45-117); Anion Gap 10 (5-15); BUN 6 mg/dL (7-18); BUN/Creat Ratio 9.7 RATIO (10-20); Calcium,Total 9.6 mg/dL (8.5-10.1); Chloride 98 mmol/L (98-107); Creatinine, Serum 0.62 mg/dL (0.70-1.30); EST Glomerular Filtration Rate 157 mL/min (>60); Est Glom Filt Rate - Afr Amer 191 mL/min (>60); Estimated Creatinine Clearance 162.42 ml/min; Globulin 3.9 g/dL (2.2-4.2); Glucose 89 mg/dL (74-106); Potassium 2.9 mmol/L (3.5-5.1); Protein, Total 7.5 g/dL (6.4-8.2); Sodium Level 135 mmol/L (136-145)
--- NOTE | 2022-10-17 08:10 | PCM.PN.HOSP ---
Reason for Visit Reason for Visit: Diagnoses Hypomagnesemia (10/15/22) Hypo-osmolality and hyponatremia (10/15/22) Acidosis, unspecified (10/15/22) Hypokalemia (10/15/22) Alcohol abuse, uncomplicated (10/15/22) Alcoholic hepatitis without ascites (10/15/22) Subjective Subjective Became confused last night with hallucinations. Persisted overnight and today pt remains confused. He is getting out of his bed and unsteady on his feet. He has not physically threatened any one, but his demeanor has become more aggressive. Objective Data Objective Data Vital Signs: Vital Signs Temp Pulse Resp BP Pulse Ox O2 Del Method 36.7 C 95 14 153/105 H 100 Room Air 10/16/22 20:13 10/16/22 20:13 10/16/22 20:13 10/16/22 20:13 10/16/22 20:13 10/16/22 20:15 Oxygen Delivery Method Room Air Weight: 74.7 kg Body Mass Index (BMI) 25.0 Intake & Output: Intake and Output for Last 24 Hours 10/15/22 10/16/22 10/17/22 23:59 23:59 23:59 Intake Total 1000 / 1100 3215.2 / 4015.2 800 / 800 Output Total 300 / 300 Balance 1000 / 1100 2915.2 / 3715.2 800 / 800 Lab / Micro Data Result Diagrams: 10/15/22 18:35 10/17/22 06:03 Labs: Laboratory Results - last 24 hr 10/16/22 06:05: Magnesium 1.2 L 10/17/22 06:03: Sodium 135 L, Potassium 2.9 L, Chloride 98, Carbon Dioxide 27.0, Anion Gap 10, BUN 6 L, Creatinine 0.62 L, Estim Creat Clear Calc 162.42, Est GFR (MDRD) Af Amer 191, Est GFR (MDRD) Non-Af 157, BUN/Creatinine Ratio 9.7 L, Glucose 89, Calcium 9.6, Magnesium 2.0, Total Bilirubin 1.20 H, AST 218 H, ALT 66 H, Alkaline Phosphatase 74, Total Protein 7.5, Albumin 3.6, Globulin 3.9, Albumin/Globulin Ratio 0.9 Physical Exam Const Constitutional Narrative: slurred speech. General Appearance: uncooperative Orientation / Consciousness: confused HEENT head/scalp atraumatic and moist oral mucous membranes Eyes Eyes Narrative: no icterus. Neuro oriented x3 and moves all extremities Neuro Narrative: unsteady. Psych Psych Narrative: agitated. Assessment & Plan Assessment/Plan (1) ETOH abuse: PLAN: Last drink was 2 days prior to admission. Patient has been initiated and receiving a phenobarbital taper. Continue with. Medications for other somatic complaints with his withdrawal. Thiamine and folate Hallucinating and bizarre behavior, but not combatitve (2) Alcoholic hepatitis: PLAN: with hyperbilirubinemia AST tredning down. Bili trending down. INR 1 (3) Metabolic acidosis: PLAN: Anion gap metabolic acidosis. Now resolved. May have been due to nausea and vomiting. Bicarb low normal. Gap of 24. Lactic acid 2.2 on admission, then 1.2 Serum acetone elevated Started on dextrose infusion and half-normal saline at the ED. Thiamine given on presentation to the ED. With history of hypokalemia. Supplementation added to dextrose infusion. (4) Hypokalemia: PLAN: Dipped down from 3.5-3.4 despite replacement. Per that may have been due to the metabolic acidosis. Would continue with replacement and monitor. (5) Hyponatremia: PLAN: Slowly improved Sodium of 131. Chloride of 86. Patient drinks alcohol and had not drank about 2 days prior to arrival so I do not feel that this was beer Potomania. (6) Hypomagnesemia: PLAN: 1.2 Replace Recheck (7) Delirium tremens: PLAN: Developed 10/16. Pt at high risk for further decompensation, as well as he could become a threat to staff. Will transfer to ICU and initiate dexmedetomidine gtt. PLAN: Plan Tobacco abuse Counseled Scheduled nicotine patch prescribed. As needed nicotine gum ordered. DVT prophylaxis Low risk Encourage to ambulate Disposition: To be determined. We will reevaluate the patient on the to see if medically he is ready for discharge. Patient has plans to follow-up with a program around [place]. Charges/Coding Visit Charges Inpatient E&M: 58303 Subs Hosp L2
[2022-10-17] MEDS: Folic Acid 1 MG Tablet PO (08:57)
[2022-10-17] MEDS: Thiamine Hydrochloride 100 MG Tablet PO (08:57)
--- NOTE | 2022-10-17 09:10 | NURSING ---
Patient setting off bed alarm attempted to leave room and appears very unsteady. Losing balance while in doorway. Staff to room to assist him. Stating he wants his wallet, phone, etc. He was told these items were locked up but he insisted and opened his RAMP totes. Patient was escorted to hallway with staff. He was eventually assisted into a wheelchair and the JIG BORE TOOL MAKER is currently walking around with patient in wheelchair while awaiting bed in ICU.
[2022-10-17] MEDS: Potassium Chloride 10mEq/100mL 10 MEQ/100 ML IV.SOLN. 100 MEQ IV BOLUS ×4 (09:56→13:21)
[2022-10-18] VITALS (24 sets, daily range): BP systolic 90–128; BP diastolic 57–93; PULSE 77–123; RESP 16–29; TEMP 36.6–37.2; O2SAT 98–100; BMI 25.7
[2022-10-18] MEDS: Phenobarbital 32.4 MG Tablet PO ×5 (01:50→22:00)
[2022-10-18 04:03] LABS: ALB/GLOB Ratio 0.9 RATIO (0.9-2.4); AST(SGOT) 331 U/L (15-37); Alanine Aminotransfer ALT/SGPT 109 U/L (16-61); Albumin, Serum 3.2 g/dL (3.2-5.0); Alkaline Phosphatase 71 U/L (45-117); Anion Gap 7 (5-15); BUN 6 mg/dL (7-18); BUN/Creat Ratio 10.8 RATIO (10-20); Chloride 103 mmol/L (98-107); Creatinine, Serum 0.56 mg/dL (0.70-1.30); EST Glomerular Filtration Rate 178 mL/min (>60); Est Glom Filt Rate - Afr Amer 215 mL/min (>60); Estimated Creatinine Clearance 179.82 ml/min; Globulin 3.7 g/dL (2.2-4.2); Glucose 124 mg/dL (74-106); Potassium 3.1 mmol/L (3.5-5.1); Protein, Total 6.9 g/dL (6.4-8.2); Sodium Level 139 mmol/L (136-145)
--- NOTE | 2022-10-18 07:10 | PCM.PN.HOSP ---
Reason for Visit Reason for Visit: Diagnoses Hypomagnesemia (10/15/22) Hypo-osmolality and hyponatremia (10/15/22) Acidosis, unspecified (10/15/22) Hypokalemia (10/15/22) Alcohol abuse, uncomplicated (10/15/22) Alcohol use, unspecified with withdrawal delirium (10/15/22) Alcoholic hepatitis without ascites (10/15/22) Subjective Subjective Patient doing better. Less agitation. Objective Data Objective Data Vital Signs: Vital Signs Temp Pulse Resp BP Pulse Ox O2 Del Method 36.9 C 84 18 118/79 99 Room Air 10/18/22 04:00 10/18/22 06:00 10/18/22 06:00 10/18/22 06:00 10/18/22 06:00 10/18/22 06:00 Oxygen Delivery Method Room Air Weight: 76.8 kg Body Mass Index (BMI) 25.7 Intake & Output: Intake and Output for Last 24 Hours 10/16/22 10/17/22 10/18/22 23:59 23:59 23:59 Intake Total 3215.2 / 4015.2 1405.53 / 1671.63 430.30 / 430.30 Output Total 300 / 300 700 / 700 Balance 2915.2 / 3715.2 705.53 / 971.63 430.30 / 430.30 Lab / Micro Data Result Diagrams: 10/15/22 18:35 10/18/22 03:35 Labs: Laboratory Results - last 24 hr 10/17/22 06:03: Sodium 135 L, Potassium 2.9 L, Chloride 98, Carbon Dioxide 27.0, Anion Gap 10, BUN 6 L, Creatinine 0.62 L, Estim Creat Clear Calc 162.42, Est GFR (MDRD) Af Amer 191, Est GFR (MDRD) Non-Af 157, BUN/Creatinine Ratio 9.7 L, Glucose 89, Calcium 9.6, Magnesium 2.0, Total Bilirubin 1.20 H, AST 218 H, ALT 66 H, Alkaline Phosphatase 74, Total Protein 7.5, Albumin 3.6, Globulin 3.9, Albumin/Globulin Ratio 0.9 10/18/22 03:35: Sodium 139, Potassium 3.1 L, Chloride 103, Carbon Dioxide 29.0, Anion Gap 7, BUN 6 L, Creatinine 0.56 L, Estim Creat Clear Calc 179.82, Est GFR (MDRD) Af Amer 215, Est GFR (MDRD) Non-Af 178, BUN/Creatinine Ratio 10.8, Glucose 124 H, Calcium 9.0, Total Bilirubin 0.70, AST 331 H, ALT 109 H, Alkaline Phosphatase 71, Total Protein 6.9, Albumin 3.2, Globulin 3.7, Albumin/Globulin Ratio 0.9 Physical Exam Const alert and no apparent distress HEENT head/scalp atraumatic, moist oral mucous membranes, oropharynx normal and dentition normal Resp normal respiratory effort, no retractions, no use of accessory muscles and clear to auscultation bilaterally Cardio regular rate, regular rhythm, S1 normal heart sound and S2 normal heart sound GI normal to inspection, nondistended, normoactive bowel sounds, soft to palpation, non-tender and non-distended Extremity normal to inspection Assessment & Plan Assessment/Plan (1) Delirium tremens: PLAN: Developed 10/16. Currently improving. Pt at high risk for further decompensation, as well as he could become a threat to staff. Transfered to ICU 10/17 and initiated dexmedetomidine gtt. (2) ETOH abuse: PLAN: Last drink was 2 days prior to admission. Patient has been initiated and receiving a phenobarbital taper. Continue with. Medications for other somatic complaints with his withdrawal. Thiamine and folate Hallucinating and bizarre behavior, but not combative (3) Alcoholic hepatitis: PLAN: with hyperbilirubinemia AST tredning down. Bili trending down. INR 1 (4) Metabolic acidosis: PLAN: Anion gap metabolic acidosis. Now resolved. May have been due to nausea and vomiting. Bicarb low normal. Gap of 24. Lactic acid 2.2 on admission, then 1.2 Serum acetone elevated Started on dextrose infusion and half-normal saline at the ED. Thiamine given on presentation to the ED. With history of hypokalemia. Supplementation added to dextrose infusion. (5) Hypokalemia: PLAN: Dipped down from 3.5-3.4 despite replacement. Per that may have been due to the metabolic acidosis. Would continue with replacement and monitor. (6) Hyponatremia: PLAN: Slowly improved Sodium of 131. Chloride of 86. Patient drinks alcohol and had not drank about 2 days prior to arrival so I do not feel that this was beer Potomania. (7) Hypomagnesemia: PLAN: 1.2 Replace Recheck PLAN: Plan Tobacco abuse Counseled Scheduled nicotine patch prescribed. As needed nicotine gum ordered. DVT prophylaxis Low risk Encourage to ambulate Charges/Coding Visit Charges Inpatient E&M: 35574 Subs Hosp L2
[2022-10-18] MEDS: Folic Acid 1 MG Tablet PO (09:24)
[2022-10-18] MEDS: Thiamine Hydrochloride 100 MG Tablet PO (09:24)
[2022-10-18] MEDS: Nicotine Polacrilex 2 MG GUM PO ×2 (09:28→16:13)
--- NOTE | 2022-10-18 09:50 | CASEMGMT ---
Social Work Follow up email sent to [employer] inquiring if they are able to follow up w/pt regarding Medicaid. KASSIE Martinez
[2022-10-18] MEDS: Potassium Chloride Oral Tablet 20 MEQ 60 MEQ PO (12:12)
[2022-10-18] MEDS: LORazepam 1 MG Tablet 2 MG PO (22:00)
[2022-10-19] VITALS (15 sets, daily range): BP systolic 90–141; BP diastolic 55–100; PULSE 91–113; RESP 15–26; TEMP 36.3–37.1; O2SAT 98–100; BMI 25.3
[2022-10-19] MEDS: Phenobarbital 32.4 MG Tablet PO ×4 (05:16→22:18)
--- NOTE | 2022-10-19 07:17 | PCM.PN.HOSP ---
Reason for Visit Reason for Visit: Diagnoses Hypomagnesemia (10/15/22) Hypo-osmolality and hyponatremia (10/15/22) Acidosis, unspecified (10/15/22) Hypokalemia (10/15/22) Alcohol abuse, uncomplicated (10/15/22) Alcohol use, unspecified with withdrawal delirium (10/15/22) Alcoholic hepatitis without ascites (10/15/22) Subjective Subjective Feels well. Denies complaints. Objective Data Objective Data Vital Signs: Vital Signs Temp Pulse Resp BP Pulse Ox O2 Del Method 36.8 C 91 18 103/69 98 Room Air 10/19/22 04:00 10/19/22 07:00 10/19/22 07:00 10/19/22 07:00 10/19/22 07:00 10/19/22 07:00 Oxygen Delivery Method Room Air Weight: 75.7 kg Body Mass Index (BMI) 25.3 Intake & Output: Intake and Output for Last 24 Hours 10/17/22 10/18/22 10/19/22 23:59 23:59 23:59 Intake Total 1405.53 / 1671.63 1463.89 / 1713.89 490 / 490 Output Total 700 / 700 1200 / 1700 500 / 500 Balance 705.53 / 971.63 263.89 / 13.89 -10 / -10 Lab / Micro Data Result Diagrams: 10/15/22 18:35 10/19/22 07:35 Physical Exam Const alert and no apparent distress HEENT head/scalp atraumatic and moist oral mucous membranes Neuro Sensorium / Orientation: awake Psych affect normal Assessment & Plan Assessment/Plan (1) Delirium tremens: PLAN: Developed 10/16. Currently improving. Pt at high risk for further decompensation, as well as he could become a threat to staff. Transfered to ICU 10/17 and initiated dexmedetomidine gtt. Dexmedetomidine weaned off on 10/18. (2) ETOH abuse: PLAN: Last drink was 2 days prior to admission. Patient has been initiated and receiving a phenobarbital taper. Continue with. Medications for other somatic complaints with his withdrawal. Thiamine and folate Hallucinating and bizarre behavior, but not combative (3) Alcoholic hepatitis: PLAN: with hyperbilirubinemia AST tredning down. Bili trending down. INR 1 (4) Metabolic acidosis: PLAN: Anion gap metabolic acidosis. Now resolved. May have been due to nausea and vomiting. Bicarb low normal. Gap of 24. Lactic acid 2.2 on admission, then 1.2 Serum acetone elevated Started on dextrose infusion and half-normal saline at the ED. Thiamine given on presentation to the ED. With history of hypokalemia. Supplementation added to dextrose infusion. (5) Hypokalemia: PLAN: Dipped down from 3.5-3.4 despite replacement. Per that may have been due to the metabolic acidosis. Would continue with replacement and monitor. (6) Hyponatremia: PLAN: Slowly improved Sodium of 131. Chloride of 86. Patient drinks alcohol and had not drank about 2 days prior to arrival so I do not feel that this was beer Potomania. (7) Hypomagnesemia: PLAN: 1.2 Replaced and improved to 2. PLAN: Plan Tobacco abuse Counseled Scheduled nicotine patch prescribed. As needed nicotine gum ordered. DVT prophylaxis Low risk Encourage to ambulate Charges/Coding Visit Charges Inpatient E&M: 90263 Subs Hosp L2
[2022-10-19] MEDS: Thiamine Hydrochloride 100 MG Tablet PO (07:37)
[2022-10-19] MEDS: Folic Acid 1 MG Tablet PO (07:37)
[2022-10-19 08:06] LABS: ALB/GLOB Ratio 0.8 RATIO (0.9-2.4); AST(SGOT) 102 U/L (15-37); Alanine Aminotransfer ALT/SGPT 60 U/L (16-61); Albumin, Serum 2.8 g/dL (3.2-5.0); Alkaline Phosphatase 62 U/L (45-117); Anion Gap 5 (5-15); BUN 5 mg/dL (7-18); BUN/Creat Ratio 9.3 RATIO (10-20); Calcium,Total 8.6 mg/dL (8.5-10.1); Chloride 103 mmol/L (98-107); Creatinine, Serum 0.54 mg/dL (0.70-1.30); EST Glomerular Filtration Rate 186 mL/min (>60); Est Glom Filt Rate - Afr Amer 224 mL/min (>60); Estimated Creatinine Clearance 186.48 ml/min; Globulin 3.7 g/dL (2.2-4.2); Glucose 96 mg/dL (74-106); Potassium 3.2 mmol/L (3.5-5.1); Protein, Total 6.5 g/dL (6.4-8.2); Sodium Level 134 mmol/L (136-145)
--- NOTE | 2022-10-19 09:19 | CASEMGMT ---
SW contacted airport operations specialist, Armin and notified her patient is able to discuss treatment options. Clara Villela UNDERCOVER AGENT YOLANDA
--- NOTE | 2022-10-19 11:22 | ADDICTION ---
This data analyst report writer met with PT to conduct ASAM, MSE, AUDIT, DUDIT assessments and to plan for d/c. PT A+Ox4 and participated actively. All assessments completed and placed in PT's chart. PT plans to f/u with [facility] for follow-up outpatient treatment services. He reports he does not need transportation post discharge.
[2022-10-19] MEDS: Nicotine Polacrilex 2 MG GUM PO ×2 (14:17→21:06)
[2022-10-19] MEDS: hydrOXYzine PAM 25 MG Capsule 50 MG PO ×2 (14:23→21:07)
[2022-10-19] MEDS: 0.9% Saline Lock 10 ML Syringe IV (21:06)
[2022-10-20 03:50] VITALS: BP 128/75; PULSE 86; RESP 16; TEMP 37.1; O2SAT 100
[2022-10-20] MEDS: hydrOXYzine PAM 25 MG Capsule 50 MG PO (03:55)
--- NOTE | 2022-10-20 08:10 | PCM.PN.HOSP ---
Reason for Visit Reason for Visit: Diagnoses Hypomagnesemia (10/15/22) Hypo-osmolality and hyponatremia (10/15/22) Acidosis, unspecified (10/15/22) Hypokalemia (10/15/22) Alcohol abuse, uncomplicated (10/15/22) Alcohol use, unspecified with withdrawal delirium (10/15/22) Alcoholic hepatitis without ascites (10/15/22) Objective Data Objective Data Vital Signs: Vital Signs Temp Pulse Resp BP Pulse Ox O2 Del Method 37.1 C 86 16 128/75 H 100 Room Air 10/20/22 03:50 10/20/22 03:50 10/20/22 03:50 10/20/22 03:50 10/20/22 03:50 10/20/22 03:50 Oxygen Delivery Method Room Air Weight: 75.7 kg Body Mass Index (BMI) 25.3 Intake & Output: Intake and Output for Last 24 Hours 10/18/22 10/19/22 10/20/22 23:59 23:59 23:59 Intake Total 1463.89 / 1713.89 490 / 490 Output Total 1200 / 1700 500 / 500 Balance 263.89 / 13.89 -10 / -10 Lab / Micro Data Result Diagrams: 10/15/22 18:35 10/19/22 07:35 Assessment & Plan Assessment/Plan (1) Delirium tremens: PLAN: Developed 10/16. Currently improving. Pt at high risk for further decompensation, as well as he could become a threat to staff. Transfered to ICU 10/17 and initiated dexmedetomidine gtt. Dexmedetomidine weaned off on 10/18. (2) ETOH abuse: PLAN: Last drink was 2 days prior to admission. Patient has been initiated and receiving a phenobarbital taper. Continue with. Medications for other somatic complaints with his withdrawal. Thiamine and folate Hallucinating and bizarre behavior, but not combative (3) Alcoholic hepatitis: PLAN: with hyperbilirubinemia AST tredning down. Bili trending down. INR 1 (4) Metabolic acidosis: PLAN: Anion gap metabolic acidosis. Now resolved. May have been due to nausea and vomiting. Bicarb low normal. Gap of 24. Lactic acid 2.2 on admission, then 1.2 Serum acetone elevated Started on dextrose infusion and half-normal saline at the ED. Thiamine given on presentation to the ED. With history of hypokalemia. Supplementation added to dextrose infusion. (5) Hypokalemia: PLAN: Dipped down from 3.5-3.4 despite replacement. Per that may have been due to the metabolic acidosis. Would continue with replacement and monitor. (6) Hyponatremia: PLAN: Slowly improved Sodium of 131. Chloride of 86. Patient drinks alcohol and had not drank about 2 days prior to arrival so I do not feel that this was beer Potomania. (7) Hypomagnesemia: PLAN: 1.2 Replaced and improved to 2. PLAN: Plan Tobacco abuse Counseled Scheduled nicotine patch prescribed. As needed nicotine gum ordered. DVT prophylaxis Low risk Encourage to ambulate
[2022-10-20 08:47] VITALS: BP 134/96; PULSE 88; RESP 16; TEMP 37.2; O2SAT 99
[2022-10-20] MEDS: Folic Acid 1 MG Tablet PO (09:02)
[2022-10-20] MEDS: Thiamine Hydrochloride 100 MG Tablet PO (09:05)
--- NOTE | 2022-10-20 09:49 | DCINST_ITS ---
Discharge Instructions Diet Discharge Diet: No restrictions Follow Up Care Test Results: Test results from this visit will be discussed in further detail at your follow- up appointment, if applicable. Discharge Plan Admission Admit Date/Time: 10/15/22 19:39 Primary Reason for Your Visit: alcohol withdrawal Attending Provider: Dayron Bell Primary Care Provider: Care Physician,No Primary Consulting Providers: Dangelo Soriano Instructions Additional Instructions / Restrictions: Follow up with [facility] for Intensive outpatient (IOP). Discharge Orders/Prescriptions Prescriptions: New multivitamin Tablet 1 tab PO DAILY Qty: 30 0RF Referrals / Follow Up: Care Physician,No Primary [Primary Care Provider] - Disposition Disposition (needs filled in before D/C Order can be placed): Home, Self Care
--- NOTE | 2022-10-20 09:51 | DS.PCM_ITS ---
Providers Date of Admission: 10/15/22 Primary Care Physician: No Primary Care Phys Reason For Visit: ALCOHOL WITHDRAW AND DESIRE OF DETOXIFICATION Diagnosis Discharge Diagnosis (1) Delirium tremens: Status: Acute Code(s): F10.931 - Alcohol use, unspecified with withdrawal delirium (2) ETOH abuse: Status: Acute Code(s): F10.10 - Alcohol abuse, uncomplicated (3) Alcoholic hepatitis: Status: Acute Code(s): K70.10 - Alcoholic hepatitis without ascites (4) Metabolic acidosis: Status: Acute Code(s): E87.20 - Acidosis, unspecified (5) Hypokalemia: Status: Acute Code(s): E87.6 - Hypokalemia (6) Hyponatremia: Status: Acute Code(s): E87.1 - Hypo-osmolality and hyponatremia (7) Hypomagnesemia: Status: Acute Code(s): E83.42 - Hypomagnesemia Medications at Discharge Home Medications multivitamin 1 tab PO DAILY #30 tabs 10/20/22 Hospital Course Operations None Procedures None Summary of Care Provided Minutes Spent on Discharge: 32 Hospital Course: A 32-year-old male presents with acute alcohol withdrawal. His last drink was 2 days prior to admission. Patient started on phenobarbital taper. Patient's condition deteriorated on the and he continued to get worse and was in delirium tremens. The patient required being placed on a Precedex drip. Patient did well and Precedex drip was discontinued on the . Patient overall is doing well and patient will follow-up with [facility]. Patient states that he is come here on his own volition and has buy in get sober this time (prior episode was not voluntary). Addition when the patient came here he had a lot of electrolyte abnormalities with hyponatremia, the sodium 131, hypomagnesemia with a magnesium of 1.2, and hypokalemia. Patient did also have metabolic acidosis likely due to the nausea and vomiting that he was experiencing but that all resolved. Weight / BMI Weight Weight: 75.7 kg Body Mass Index (BMI) 25.3 ABG / Lab / Microbiology Data Result Diagrams: 10/15/22 18:35 10/19/22 07:35 D/C Instructions Discharge Diet: No restrictions Meaningful Use Info Meaningful Use Diagnoses (Choose all that apply): None applicable Discharge Plan Admission Admit Date/Time: 10/15/22 19:39 Primary Reason for Your Visit: alcohol withdrawal Attending Provider: Dayron Bell Primary Care Provider: Care Physician,No Primary Consulting Providers: Dangelo Soriano Instructions Additional Instructions / Restrictions: Follow up with [facility] for Intensive outpatient (IOP). Discharge Orders/Prescriptions Prescriptions: New multivitamin Tablet 1 tab PO DAILY Qty: 30 0RF Referrals / Follow Up: Care Physician,No Primary [Primary Care Provider] - Disposition Disposition (needs filled in before D/C Order can be placed): Home, Self Care Charges/Coding Visit Charges Inpatient E&M: 50771 Disch Hosp >30min
== END 2022-10-20 13:25 | disposition home or self-care (01) | DRG 897 ==
LOC: ED 19:01 → MS3 20:15 → ICU 10-17 09:24 → MS3 10-19 13:24
PROVIDERS: Admitting Provider Hospitalist; Emergency Provider Emergency Medicine
DX: F10.239 Alcohol dependence with withdrawal, unspecified (principal); E87.20 Acidosis, unspecified; E87.1 Hypo-osmolality and hyponatremia; F10.231 Alcohol dependence with withdrawal delirium; K70.10 Alcoholic hepatitis without ascites; F17.210 Nicotine dependence, cigarettes, uncomplicated; E87.6 Hypokalemia; E83.42 Hypomagnesemia; E80.7 Disorder of bilirubin metabolism, unspecified; Y90.0 Blood alcohol level of less than 20 mg/100 ml
CPT/HCPCS: 36415; 80053; 80307; 82009; 82077; 83605; 83735; 85025; 85610; 93005; 99284; J7030; J7050; A4216; J3490